=== PATIENT | female | born 1970 | race Caucasian/White ===

== ENCOUNTER 2022-06-10 12:43 | Outpatient (REF) | payer OTHER, SELFPAY ==
--- NOTE | 2022-06-10 12:50 | EEG_ITS ---
PROCEDURE: 24 hour ambulatory EEG. Waking background activity consists of a moderate voltage 9 hertz posterior alpha frequency, intermixed anteriorly with low-voltage fast frequencies. Drowsiness is characterized by diffuse theta slowing. During sleep, symmetrical frontocentral sleep spindles and vertex sharp transients developed over both hemispheres. Arousals are frequent and unremarkable. The patient remains asymptomatic. No focal, lateralizing, or paroxysmal discharges are seen. IMPRESSION: This 24-hour ambulatory EEG is within normal limits. MD BRITANY Baron/GABINO / [id number]
== END 2022-06-10 12:44 | disposition home or self-care (01) ==
LOC: HO.NEURO 12:43
PROVIDERS: PCP Internal Medicine Medical Oncology; Visit Provider Psychiatry & Neurology Neurology
DX: G40.909 Epilepsy, unspecified, not intractable, without status epilepticus (principal)
CPT/HCPCS: 95708

== ENCOUNTER 2023-01-04 10:13 | Outpatient (REF) | payer OTHER, SELFPAY ==
--- NOTE | ~2023-01-04 | MM_ITS ---
EXAMINATION: MM SCREENING DIGITAL BREAST TOMOSYNTHESIS, BILATERAL CLINICAL INFORMATION: Screening. Asymptomatic. Prior dcw-vn-ebwzu mammography unavailable at this time. No known family history breast cancer. The lifetime risk of breast cancer based on the Tyrer-Cuzick Model is 8%. COMPARISON: None. TECHNIQUE: Digital breast tomosynthesis is performed in both the craniocaudal and mediolateral oblique views along with computer-aided detection (CAD). Synthesized 2D images are generated from the tomosynthesis. Additional bilateral exaggerated CC views are provided. FINDINGS: The breasts are heterogeneously dense, which may obscure small masses (ACR BI-RADS breast composition Category c). Breast tissue composition borders on extremely dense. There are no significant masses, abnormal calcifications, or other abnormalities. No architectural abnormality. The axilla are unremarkable. Skin contours are smooth. If prior outside mammography is able to be located, comparison will be made in an addendum report. MM/MM tomosynthesis screening BI IMPRESSION: No mammographic evidence of malignancy. ASSESSMENT: BI-RADS 1: Negative RECOMMENDATION: Routine annual mammography screening. This patient's information was entered into a reminder system with a target due date for their next mammogram.
== END 2023-01-04 10:14 | disposition home or self-care (01) ==
LOC: HO.MAMMO 10:13
PROVIDERS: PCP Internal Medicine Medical Oncology; Visit Provider Internal Medicine Medical Oncology
DX: Z12.31 Encounter for screening mammogram for malignant neoplasm of breast (principal)
CPT/HCPCS: 77063; 77067

== ENCOUNTER 2023-07-16 09:14 | Outpatient (REF) | payer OTHER, SELFPAY ==
[2023-07-16 09:39] LABS: MANUAL DIFF FLAG NO
[2023-07-16 10:20] LABS: Basophils Percent Auto 0.4 % (0-2); Eosinophils Absolute Auto 0.1 X10*3/uL (0.0-0.4); Eosinophils Percent Auto 0.6 % (0-4); Hematocrit 41.1 % (37.0-47.0); Hemoglobin 14.1 g/dl (12.0-16.0); Imm Gran Abs Auto 0.09 X10*3/uL (0.00-0.03); Imm Gran Pct Auto 1.1 % (0.0-0.4); Lymphocytes Percent Auto 12.5 % (20-40); Mean Corpuscular HGB Conc 34.3 g/dl (31.0-35.0); Mean Corpuscular Hemoglobin 31.2 pg (27.0-33.0); Mean Corpuscular Volume 90.9 fL (80.0-98.0); Mean Platelet Volume 10.2 fL (9.4-12.3); Monocytes Absolute Auto 0.4 X10*3/uL (0.1-1.2); Monocytes Percent Auto 5.5 % (2-11); Neutrophils Absolute Auto 6.4 x10*3/uL (2.0-8.3); Neutrophils Percent Auto 79.9 % (45-73); Platelet Count 274 X10*3/uL (160-400); Red Blood Count 4.52 X10*6/uL (4.20-5.50); Red Cell Distribution Width 12.5 % (11.0-16.0); White Blood Count 8.1 X10*3/uL (4.8-10.8)
[2023-07-16 11:05] LABS: Alanine Aminotransferase 13 U/L (0-31); Albumin Level 4.6 g/dL (3.5-5.0); Alkaline Phosphatase 64 U/L (39-117); Anion Gap 17 (12-20); Aspartate Amino Transferase 17 U/L (5-31); Bilirubin Total 1.1 mg/dL (0.0-1.0); Blood Urea Nitrogen 16 mg/dL (9-16); Calcium 9.6 mg/dL (8.4-10.2); Carbon Dioxide 24 mmol/L (22-29); Chloride 104 mmol/L (96-108); Cholesterol 258 mg/dL (<200); Estimated Glomerular Filt Rate > 60; Glucose Random 90 mg/dL (60-115); HDL Cholesterol 86 mg/dL (>40); LDL Cholesterol Calculated 160 mg/dL (<100); Potassium 4.2 mmol/L (3.3-5.1); Sodium 141 mmol/L (135-145); Total Protein 7.2 g/dL (6.5-8.0); Triglycerides 63 mg/dL (<150)
== END 2023-07-16 09:15 | disposition home or self-care (01) ==
LOC: HO.LAB 09:14
PROVIDERS: PCP Internal Medicine Medical Oncology; Visit Provider Internal Medicine Medical Oncology
DX: Z00.00 Encounter for general adult medical examination without abnormal findings (principal); R56.9 Unspecified convulsions
CPT/HCPCS: 36415; 80053; 80061; 85025

== ENCOUNTER 2023-11-14 11:21 | Outpatient (REF) | payer OTHER, SELFPAY ==
[2023-11-14 11:48] LABS: MANUAL DIFF FLAG NO
[2023-11-14 12:43] LABS: Basophils Percent Auto 0.5 % (0-2); Eosinophils Absolute Auto 0.1 X10*3/uL (0.0-0.4); Eosinophils Percent Auto 0.8 % (0-4); Hematocrit 41.6 % (37.0-47.0); Hemoglobin 14.4 g/dl (12.0-16.0); Imm Gran Abs Auto 0.03 X10*3/uL (0.00-0.03); Imm Gran Pct Auto 0.4 % (0.0-0.4); Lymphocytes Absolute Auto 1.4 X10*3/uL (1.2-4.9); Mean Corpuscular HGB Conc 34.6 g/dl (31.0-35.0); Mean Corpuscular Hemoglobin 31.9 pg (27.0-33.0); Mean Platelet Volume 10.4 fL (9.4-12.3); Monocytes Absolute Auto 0.5 X10*3/uL (0.1-1.2); Monocytes Percent Auto 6.2 % (2-11); Neutrophils Absolute Auto 5.4 x10*3/uL (2.0-8.3); Neutrophils Percent Auto 73.1 % (45-73); Platelet Count 282 X10*3/uL (160-400); Red Blood Count 4.52 X10*6/uL (4.20-5.50); Red Cell Distribution Width 12.7 % (11.0-16.0); White Blood Count 7.4 X10*3/uL (4.8-10.8)
[2023-11-14 13:21] LABS: Alanine Aminotransferase 14 U/L (0-31); Albumin Level 4.5 g/dL (3.5-5.0); Alkaline Phosphatase 54 U/L (39-117); Anion Gap 14 (12-20); Aspartate Amino Transferase 17 U/L (5-31); Bilirubin Total 0.7 mg/dL (0.0-1.0); Blood Urea Nitrogen 15 mg/dL (9-16); Calcium 10.2 mg/dL (8.4-10.2); Carbon Dioxide 29 mmol/L (22-29); Chloride 102 mmol/L (96-108); Cholesterol 226 mg/dL (<200); Estimated Glomerular Filt Rate > 60; Glucose Fasting 100 mg/dL (60-99); HDL Cholesterol 78 mg/dL (>40); LDL Cholesterol Calculated 132 mg/dL (<100); Sodium 141 mmol/L (135-145); Total Protein 7.1 g/dL (6.5-8.0); Triglycerides 82 mg/dL (<150)
== END 2023-11-14 11:22 | disposition home or self-care (01) ==
LOC: HO.LAB 11:21
PROVIDERS: PCP Internal Medicine Medical Oncology; Visit Provider Internal Medicine Medical Oncology
DX: G43.909 Migraine, unspecified, not intractable, without status migrainosus (principal); N30.10 Interstitial cystitis (chronic) without hematuria; M19.90 Unspecified osteoarthritis, unspecified site
CPT/HCPCS: 36415; 80053; 80061; 85025

== ENCOUNTER 2024-01-11 09:49 | Outpatient (REF) | payer OTHER, SELFPAY ==
--- NOTE | ~2024-01-11 | MM_ITS ---
EXAMINATION: MM SCREENING DIGITAL BREAST TOMOSYNTHESIS, BILATERAL CLINICAL INFORMATION: Screening. Asymptomatic. COMPARISON: Mammography: This study is compared with prior exams dating back to 2022. TECHNIQUE: Digital breast tomosynthesis is performed in both the craniocaudal and mediolateral oblique views along with computer-aided detection (CAD). Synthesized 2D images are generated from the tomosynthesis. FINDINGS: The breasts are extremely dense, which lowers the sensitivity of mammography (ACR BI-RADS breast composition Category d). There are no significant masses, abnormal calcifications, or other abnormalities. MM/MM tomosynthesis screening BI IMPRESSION: No mammographic evidence of malignancy. ASSESSMENT: BI-RADS BI-RADS 1 - Negative RECOMMENDATION: Routine annual mammography screening. 1 year F/U This examination should not preclude the clinical evaluation of a suspicious palpable abnormality. This patient's information was entered into a reminder system with a target due date for their next mammogram.
== END 2024-01-11 09:50 | disposition home or self-care (01) ==
LOC: HO.MAMMO 09:49
PROVIDERS: PCP Internal Medicine Medical Oncology; Visit Provider Internal Medicine Medical Oncology
DX: Z12.31 Encounter for screening mammogram for malignant neoplasm of breast (principal)
CPT/HCPCS: 77063; 77067

== ENCOUNTER → 2024-01-11 10:00 | Outpatient (BNV) | payer OTHER, SELFPAY | PROVIDERS: PCP Internal Medicine Medical Oncology; Visit Provider Radiology Diagnostic Radiology | DX: Z12.31 Encounter for screening mammogram for malignant neoplasm of breast (principal) | CPT/HCPCS: 77063; 77067 ==

== ENCOUNTER 2024-07-17 08:36 | Outpatient (REF) | payer OTHER, SELFPAY ==
[2024-07-17 08:46] LABS: MANUAL DIFF FLAG NO
[2024-07-17 09:10] LABS: Basophils Percent Auto 0.5 % (0-2); Eosinophils Absolute Auto 0.1 X10*3/uL (0.0-0.4); Eosinophils Percent Auto 1.7 % (0-4); Hematocrit 42.2 % (37.0-47.0); Hemoglobin 14.2 g/dl (12.0-16.0); Imm Gran Abs Auto 0.02 X10*3/uL (0.00-0.03); Imm Gran Pct Auto 0.3 % (0.0-0.4); Lymphocytes Absolute Auto 1.6 X10*3/uL (1.2-4.9); Mean Corpuscular HGB Conc 33.6 g/dl (31.0-35.0); Mean Corpuscular Volume 92.1 fL (80.0-98.0); Mean Platelet Volume 9.5 fL (9.4-12.3); Monocytes Absolute Auto 0.5 X10*3/uL (0.1-1.2); Monocytes Percent Auto 7.5 % (2-11); Neutrophils Absolute Auto 4.3 x10*3/uL (2.0-8.3); Platelet Count 273 X10*3/uL (160-400); Red Blood Count 4.58 X10*6/uL (4.20-5.50); Red Cell Distribution Width 12.9 % (11.0-16.0); White Blood Count 6.6 X10*3/uL (4.8-10.8)
[2024-07-17 09:35] LABS: Alanine Aminotransferase 21 U/L (0-31); Albumin Level 4.2 g/dL (3.5-5.0); Alkaline Phosphatase 57 U/L (39-117); Anion Gap 11 (12-20); Aspartate Amino Transferase 19 U/L (5-31); Bilirubin Total 0.6 mg/dL (0.0-1.0); Blood Urea Nitrogen 11 mg/dL (9-16); Calcium 9.3 mg/dL (8.4-10.2); Carbon Dioxide 28 mmol/L (22-29); Chloride 108 mmol/L (96-108); Cholesterol 233 mg/dL (<200); Estimated Glomerular Filt Rate > 60; Glucose Fasting 109 mg/dL (60-99); HDL Cholesterol 85 mg/dL (>40); LDL Cholesterol Calculated 137 mg/dL (<100); Potassium 4.1 mmol/L (3.3-5.1); Sodium 143 mmol/L (135-145); Total Protein 6.5 g/dL (6.5-8.0); Triglycerides 59 mg/dL (<150)
== END 2024-07-17 08:37 | disposition home or self-care (01) ==
LOC: HO.LAB 08:36
PROVIDERS: PCP Internal Medicine Medical Oncology; Visit Provider Internal Medicine Medical Oncology
DX: G43.909 Migraine, unspecified, not intractable, without status migrainosus (principal)
CPT/HCPCS: 36415; 80053; 80061; 85025

== ENCOUNTER 2025-01-23 09:56 | Outpatient (REF) | payer OTHER, SELFPAY ==
--- OUTSIDE RECORDS SUMMARY | 2025-01-23 11:23 | XMS_ITS ---
Author Organization Adarsh Palacio III, MD Address [address] [place] [address] Care Team Providers Care Hand Winder Name Role Phone Adarsh Palacio Primary Care Provider REASON FOR VISIT Follow up Social History Sex Assigned At : Social History Observation Description Sex Assigned At Female Encounters Encounter Location Date Provider Diagnosis Adarsh Palacio III, MD [address] [place] [address] [place] [address] 01/04/2025 Adarsh Palacio Plan Of Treatment Next Appt Details Provider Name:Adarsh Palacio, 07/22/2025 03:30:00 PM, [address] [place] [address] [address], [place], [address], Progress Notes * Corina GARCIA MDOB:[birth year] (54 yo F)Acc No.[id number]:01/04/2025 Progress Notes Patient:?Corina GARCIA Provider:?Adarsh Palacio MD :1970???Age:54 Y???Sex:Female D ate:01/04/2025 Address:[address] [id number] Subjective: * Chief Complaints: * ???1. Follow up. * Medical History:? Objective: * Vitals:? Assessment: Plan: * Treatment: * Images: * The named appointment provid er may or may not be the originator of this progress note, and it is not deemed complete until electronically signed by the appointment provider. Sign off status: Pending * Provider:?Adarsh Palacio MD Date:?01/2025 Generated for Alma escobedo/Tray/Loulou on:?01/23/2025 11:23 AM EDT
--- OUTSIDE RECORDS SUMMARY | 2025-01-23 11:23 | XMS_ITS ---
Author Organization Adarsh Palacio III, MD Address [address] [place] [address] Care Team Providers Care Blaster Helper Name Role Phone Adarsh Palacio Primary Care Provider [phone] Allergies Allergen (clinical drug ingredient) Drug/Non Drug [...] SAXENA Referred Provider Specialty Dermatology General Notes 07/24/2024 09:45:13 AM > Faxed referral with progress note, 07/30/2024 01:28:41 PM > Office received referral has not been scheduled. patient will need an out of network referral, Andreia 07/30/2024 01:50:42 PM > Insurance referral completed [...] SEE D FOR DETAILED DIRECTIONS Oral Active FLUoxetine [...] Problem Status W/U Status Risk Notes Problem [id number] Underweight (R63.6) Active confirmed Her body mass [...] Date Provider Diagnosis Adarsh Palacio III, MD [address] [place] [address] DR [place], [place] [id number] 07/20/2024 Adarsh Palacio Migraine G43.909 ; Depression [...] - G56.03) When she was living in [place], [place]. She had bilateral carpal tunnel surgery [...] 11/14/2023 hydrOXYzine HCl 10 MG PLEASE SEE ETL ANALYST D FOR DETAILED DIRECTIONS Oral FLUoxetine HCl 20 MG 1 capsule Orally Once a day Trospium Chloride 20 MG 1 tablet at bedt helen on an empty stomach Orally Once a day Referrals Referral Date Details 07/20/2024 07/20/2024, Consult and Treat Routine Skin Check Acne, PATRIA SAXENA Next Appt Details Follow Up: 4 Months, To be s cheduled, Reason: OV, Colonoscopy Provider Name:Adarsh Hakeem, 07/22/2025 03:30:00 PM, [address] [place] [address] AYAH KWON, [place], [id number], Progress Notes * Corina GARCIA MDOB:[birth year] (54 yo F)Acc No.[id number]:07/20/2024 Progress Notes Patient:?Corina GARCIA M Provider:?Adarsh Palacio MD :1970???Age:53 Y???Sex:Female D ate:07/20/2024 Address:[address] [place], [place] [address]J[place] [id number] Subjective: * Chief Complaints: * ???Annual Exam * HPI: ???Depression Screening:?PHQ-9?Little interest or pleasure in doing things?Several days ?Feeling down, depressed, or hopeless?Several days ?Trouble falling or staying asleep, or sleeping too much?More than half the days ?Feeling tired or having little energy?More than half the days ?Poor appetite or overeating?Several days ?Feeling bad about yourself or that you are a failure, or have let yourself or your family down?Several days ?Trouble concentrating on things, such as reading the newspaper or watching television?Several days ?Moving or speaking so slowly that other people could have noticed; or the opposite, being so fidgety or restless that you have been moving around a lot more than usual?Not at all ?Thoughts that you would be better off or of hurting yourself in some way?Not at all ?Total Score?9 ?Interpretation?Mild Depression ???COVID-19 Screening:?Questions?Have you experienced fever, chills, cough, sore throat, shortness of breath, difficulty breathing, muscle aches, loss of taste or smell??No ?Have you been exposed to the virus within the last 10 days??No ?Have you travelled internationally in the last 10 days??No ?Have you been exposed to COVID-19 in the past??No ???SDOH Questions:?SDOH Questions?In the past year have you been worried about losing your housing??No ?In the past year have you or any family members you live with been unable to get any of the following when it was really needed? Check all that apply:?None ???:? The patient, a 53-year-old female, presented with [...] lbs. Blood Sugar Level is 109. * ROS:?General/Constitutional:?pain?only normal aches and pains.?Chills?denies.?Fatigue?admits.?Fever?denies.?Admits?Weight gain.?ENT:?Decreased hearing?denies.?Respiratory:?Cough?denies.?Cardiovascular:?Chest pain with exertion?denies.?Dyspnea on exertion?denies.?Shortness of breath?denies.?Gastrointestinal:?Constipation?occasional.?Decreased appetite?denies.?Diarrhea?denies.?Heartburn?denies.?Nausea?denies.?Rectal bleeding?denies.?Vomiting?denies.?Hematology:?bruising?denies.?petechiae?denies.?Swollen glands?none have been noted.?Genitourinary:?Frequent urination?at night.?Musculoskeletal:?Muscle aches?denies.?Painful joints?denies.?Sciatica?denies.?Weakness?denies.?Skin:?Itching?denies.?Rash?denies.?Skin lesion(s)?denies.?Neurologic:?Difficulty speaking?denies.?Dizziness?denies.?Headache?denies.?Low back pain?denies.?Psychiatric:?Depressed mood?which is mild.? * Medical History:? * Surgical History:?Bilateral carpal tunnel surgery Ulnar nerve release at elbow, [place] eye surgery First colonoscopy age 49. [facility] Fibroid surgery, [place] Dental extraction arpal tunnel surgery * Hospitalization/Major Diagno stic Procedure:?Syncope 04/2022No history * Family History:?Father: rosalia patton 71 yrs, diagnosed with HTN, CVD, DM.?Mother: 65 yrs.?Siblings: alive, diagnosed with DM, HTN.?1 sister(s) . .? Her parents are alive and well as is her sister. There is no family history of inherited cancers. * Social History:?Tobacco Use:?Tobacco Use/Smoking?Patient is a?nonsmoker ?Additional Findings: Tobacco Non-User?Aggressive non-smoker ?Tobacco Control (Standard)?Tobacco use:?Nonsmoker ?Additional Findings: Tobacco non-user?Aggressive nonsmoker ???Drugs/Alcohol:?Drugs?Have you used drugs other than those for medical reasons in the past 12 months??Yes ?Marijuana??Yes Edible Cannabis for sleep and migraines. ???Drug/Alcohol:?AUDIT-C (Standard)?Did you have a drink containing alcohol in the past year??No ?Points?0 ?Interpretation?Negative ???She was born in [place], [place]. She is but currently engaged, Leon Alvarez who is a police specialist. She has no children. She has recently started a [employer] business involving [employer] Prior to that she worked at [employer]. he canceled. She has no toxic exposures. She has no hinduism objections to blood transfusion. She lives in [place], [place]. At one point in her life. She lived in [place], [place]. Her mammograms have been done at [facility]. Her colonoscopy was at [facility]. She is under the care of a brass molder and a psychiatrist. She has never smoked cigarettes. * Medications:?TakingRizatript an Benzoate 10 MG Tablet take one tablet [...] reviewed and reconciled with the patient * Allergies:?No Known Drug All ergyno[Allergies Verified] Objective: * Vitals:?Ht: 66, Wt: 119, BMI :19.21, BP: 118/75, HR: 90, Temp: 101, Wt-k.98. * ???Past Orders: Lab:[facility] * Collection Date 07/17/2024 11/14/2023 Collection [...] 29 (Ref Range: 22-29 mmol/L) Anion Gap 11?L (Ref Range: 12-20) 14 (Ref Range: 12-20) Blood Urea Nitrogen 11 (Ref Range: 9-16 mg/dL) 15 (Ref Range: 9-16 mg/dL) Creatinine 0.86 (Ref Range: 0.5-1.4 mg/dL) 0.84 (Ref Range: 0.5-1.4 mg/dL) Estimated Glomerular Filt Rate > 60 > 60 Glucose Fasting 109?H (Ref Range: 60-99 mg/dL) 100?H (Ref Range: 60-99 mg/dL) Calcium 9.3 (Ref Range: 8.4-10.2 mg/dL) 10.2 (Ref Range: 8.4-10.2 mg/dL) * Lab:Lipid Panel * Collection Date 07/17/2024 11/14/2023 07/16/2023 Collection Time 08:45 AM 11:47 AM 09:38 AM Order Date 07/17/2024 11/14/2023 07/16/2023 Triglycerides 59 (Ref Range: <150 mg/dL) 82 (Ref Range: <150 mg/dL) 63 (Ref Range: <150 mg/dL) Cholesterol 233?H (Ref Range: <200 mg/dL) 226?H (Ref Range: <200 mg/dL) 258?H (Ref Range: <200 mg/dL) LDL Cholesterol Calculated 137?H (Ref Range: <100 mg/dL) 132?H (Ref Range: <100 mg/dL) 160?H (Ref Range: <100 mg/dL) HDL Cholesterol 85 [...] Percent Auto 66.0 (Ref Range: 45-73 %) 73.1?H (Ref Range: 45-73 %) 79.9?H (Ref Range: 45-73 %) Imm Gran Pct Auto 0.3 (Ref Range: 0.0-0.4 %) 0.4 (Ref Range: 0.0-0.4 %) 1.1?H (Ref Range: 0.0-0.4 %) Lymphocytes Percent Auto 24.0 (Ref Range: 20-40 %) 19.0?L (Ref Range: 20-40 %) 12.5?L (Ref Range: 20-40 %) Monocytes Percent Auto [...] 0.00-0.03 X10*3/uL) 0.03 (Ref Range: 0.00-0.03 X10*3/uL) 0.09?H (Ref Range: 0.00-0.03 X10*3/uL) Lymphocytes Absolute Auto 1.6 (Ref Range: 1.2-4.9 X10*3/uL) 1.4 (Ref Range: 1.2-4.9 X10*3/uL) 1.0?L (Ref Range: 1.2-4.9 X10*3/uL) Monocytes Absolute Auto [...] Negative (Ref Range: Negative -) * Examination: ???General Examination: ?GENERAL APPEARANCE:?pleasant, well nourished, well developed, in no acute distress, calm and relaxed, underweight, woman.?HEAD:?atraumatic, normocephalic.?EYES:?eomi, perrla, anicteric, conjugate.?EARS:?normal.?NOSE:?septum intact.?ORAL CAVITY:?normal, unremarkable.?NECK/THYROID:?no jugular venous distention, no carotid bruit, thyroid normal.?LYMPH NODES:?no enlarged lymph nodes,spleen normal.?SKIN:?no suspicious lesions, anicteric.?HEART:?no clicks, gallops, murmurs, or rubs, regular rhythm, S1, S2 normal, no s3, or vascular bruits.?LUNGS:?clear to auscultation .?BREASTS:?Not examined.?ABDOMEN:?bowel sounds normal, no ascites, no organomegaly, no mass.?RECTAL EXAM:?not examined.?MUSCULOSKELETAL:?extremities unremarkable, no clubbing, cyanosis or edema, Normal range of motion without pain of the right elbow.?PERIPHERAL PULSES:?normal.?NEUROLOGIC:?alert and oriented, cranial nerves 2-12 grossly intact, deep tendon reflexes 2+ symmetrical, motor strength normal upper and lower extremities, sensory exam intact.?PSYCH:?alert, oriented, cooperative with exam, good eye contact, cognitive function intact, thought process logical, goal directed, mood depressed.? Assessment: * Assessment: 1.?Migraine - G43.909 (Prima ry)???Notes :She reports having ended a relationship that caused her severe stress.?She has now been having many fewer headaches.? This has reduce the stress in her life significantly.???2.?Depression - F32.9???Notes :She reports that there is increased stress in her life but that she is not more depressed. He is maintaining her weight and doing well. She is able to conduct all of the activities of daily life and to take positive steps with the stress in her life.???3.?Interstitial cystitis - N30.10???Notes :She is experienciing increasing pain and dysuria from a flareup of her symptoms. We are referring her to urology.???4.?Left medial knee pain - M25.562???Notes :She reports occasional twinges in the left knee but is ambulating without difficulty.???5.?Bilateral carpal tunnel syndrome - G56.03???Notes :When she was living in [place], [place]. She had bilateral carpal tunnel surgery and is now stable. The pain has been relieved.???6.?Environmental allergies - Z91.09???Notes :She is having no allergies at this time.???7.?Underweight - R63.6???Notes :Her body mass index is 19. ?Her depression is improving. She was given an appointment to come as he is to measure her weight.??? Plan: * Treatment: 2.?Others? Continue Trospium Chloride Tablet, 20 MG, 1 tablet at bedtime on an empty stomach, Orally, Once a day;?Continue FLUoxetine HCl Capsule, 20 MG, 1 capsule, Orally, Once a day;?Continue buPROPion HCl ER (XL) Tablet Extended Release 24 Hour, 150 MG, 1 tablet in the morning, Orally, Once a day;?Continue clonazePAM Tablet, 1 MG, TAKE 1/2 TABLET BY MOUTH TWICE A DAY NEEDED, Oral.? Referral To:PATRIA SAXENA??Dermatology ?Reason:Consult and Treat Routine Skin Check Acne * Labs:? * ?Lab: URINE DIP STICK (C ollection Date & Time - 07/20/2024) ? Value Reference Range ?SG 1.025 1.005 - 1.025 * ?pH 6.0 5.0 - 9.0 * ?DON Negative Negative - * ?NIT Negative Negative - * ?PRO 15 Negative - Trac e * ?GLU Negative Negative - * ?KET 5 Negative - * ?UBG 0.2 0.1 - 1.8 * ?MELE Negative 0.2 - 1.3 * ?BLD 50 Negative - * Procedure Codes:?95987 URINE -NO MICRO * Preventive Medicine:? ??Counseling:?Care goal follow-up plan:?Counseling for abnormal BMI given?Yes ?Below Normal BMI Follow-up?Dietary education for weight gain, Dietary management education, guidance, and counseling, Feeding regime, Lifestyle education regarding diet, Nutrition / feeding management, Prescribed diet education, Special diet education, Intervention, Order not done: Medical or Other reason not done * Follow Up:?4 Months, To be s cheduled (Reason: OV, Colonoscopy) * Images: * Sign off status: Completed true * Provider:?Adarsh Palacio MD Date:?07/03 Generated for Alma escobedo/Tray/eTlelesmольга on:?01/23/2025 11:23 AM EDT History and Physical Notes * HPI (History [...] days?: No Have you travelled internationally in [facility] last 10 days?: No Have you been [...] RECTAL EXAM: not examined PSYCH: alert, oriented, missionary coordinator perative with exam, good eye contact, cognitive function intact, thought process logical, goal directed, mood depressed ORAL CAVITY: normal, unremarkable Consultation Request Notes Referral Date Referring Provider Referred Provider Not es 07/20/2024 Adarsh Palacio PETER Consult and Tr eat Routine Skin Check Acne
--- OUTSIDE RECORDS SUMMARY | 2025-01-23 11:23 | XMS_ITS ---
Author Organization Adarsh Palacio III, MD Address [address] [place] [address] Care Team Providers Care Hr Payroll Coordinator Name Role Phone Adarsh Palacio Primary Care Provider Allergies Allergen (clinical drug [...] Provider Speciality Internal M edicine Referred Provider [place] Referred Provider Specialty Orthopedic [facility] General Notes Marga Boswell 11/26/2024 10:39:39 AM [...] Date Provider Diagnosis Adarsh Palacio III, MD [address] [place] [address] [place] [address] 11/20/2024 Adarsh Palacio Migraine G43.909 ; Depression [...] 11/20/2024, Consult and Treat, [facility] Appt Details Follow Up: 6 Weeks, Reason: OV Provider Name:Adarsh Palacio, 07/22/2025 03:30:00 PM, [address] [place] [address] [address] [place] [address], [place], [phone], Progress Notes * Corina GARCIA MDOB:[birth year] (54 yo F)Acc No.[id number]:11/20/2024 Progress Notes Patient:?Corina GARCIA M Provider:?Adarsh Palacio MD :1970???Age:54 Y???Sex:Female D ate:11/20/2024 Address: [id number] Subjective: * Chief Complaints: * ???StressFrequent headachesP rozac reduction * HPI: ???COVID-19 Screening:?She returns for ongoing follow-up of several problems.? She has stopped her Wellbutrin and reduce her fluoxetine to 10 mg daily.? She did this on her own without a recommendation from me. She says she feels better for it.? She is under significant stress at home and at work which makes it hard to sleep.? She denies any chest pain or shortness of breath.Her depression is stable.? She has very few complaints about cystitis.? Her knee pain is unchanged.? She has had no allergy symptoms.She has gained 5 more pounds and her body mass index is now 20.? She says she is feeling better. ?Questions?Have you had any new onset fever, chills, cough, congestion, sore throat, shortness of breath, muscle aches??No * ROS:?General/Constitutional:?pain?only normal aches and pains.?Chills?denies.?Fatigue?admits.?Fever?denies.?ENT:?Decreased hearing?denies.?Respiratory:?Cough?denies.?Cardiovascular:?Chest pain with exertion?denies.?Dyspnea on exertion?denies.?Shortness of breath?denies.?Gastrointestinal:?Constipation?occasional.?Decreased appetite?denies.?Diarrhea?denies.?Heartburn?denies.?Nausea?denies.?Rectal bleeding?denies.?Vomiting?denies.?Hematology:?bruising?denies.?petechiae?denies.?Swollen glands?none have been noted.?Genitourinary:?Frequent urination?denies.?Musculoskeletal:?Muscle aches?denies.?Painful joints?denies.?Sciatica?denies.?Weakness?denies.?Skin:?Itching?denies.?Rash?denies.?Skin lesion(s)?denies.?Neurologic:?Difficulty speaking?denies.?Dizziness?denies.?Headache?denies.?Low back pain?denies.?Psychiatric:?Depressed mood?which is moderate.? * Medical History:? * Surgical History:?Bilateral carpal tunnel surgery Ulnar nerve release at [facility], [place] eye surgery First colonoscopy age 49. [facility] Fibroid surgery, [place] Dental extraction arpal tunnel surgery * Hospitalization/Major Diagno stic Procedure:?Syncope 04/2022No history * Family History:?Father: rosalia patton 71 yrs, diagnosed with DM, HTN, CVD.?Mother: 65 yrs.?Siblings: alive, diagnosed with DM, HTN.?1 sister(s) . .? Her parents are alive and well as is her sister. There is no family history of inherited cancers. * Social History:?Tobacco Use:?Tobacco Use/Smoking?Patient is a?nonsmoker ?Additional Findings: Tobacco Non-User?Aggressive non-smoker ?Tobacco Control (Standard)?Tobacco use:?Nonsmoker ?Additional Findings: Tobacco non-user?Aggressive nonsmoker ???She was born in [place], [place]. She is but currently engaged, Leon Alvarez who is a police aide. She has no children. 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 Prior to that she worked at [employer]. he canceled. She has no toxic exposures. She has no anglican objections to blood transfusion. She lives in [place], [place]. At one point in her life. She lived in [place], [place]. Her mammograms have been done at [facility]. Her colonoscopy was at [facility] [place]. She is under the care of a rubber printing machine operator and a psychiatrist. She has never smoked [...] ergyno[Allergies Verified] Objective: * Vitals:?Ht: 66, Wt: 124, BMI :20.01, BP: 139/88, HR: 78, Temp: 97.3, Wt-k.25. * Examination: ???General Examination: ?GENERAL APPEARANCE:?pleasant, well nourished, well developed, in no acute distress, calm and relaxed, woman.?HEAD:?atraumatic, normocephalic.?EYES:?eomi, perrla, anicteric, conjugate.?EARS:?normal.?NOSE:?septum intact.?ORAL CAVITY:?normal, unremarkable.?NECK/THYROID:?no jugular venous distention, no carotid bruit, thyroid normal.?LYMPH NODES:?no enlarged lymph nodes,spleen normal.?SKIN:?no suspicious lesions, anicteric.?HEART:?no clicks, gallops, murmurs, or rubs, regular rhythm, S1, S2 normal, no s3, or vascular bruits.?LUNGS:?clear to auscultation .?BREASTS:?Not examined.?ABDOMEN:?bowel sounds normal, no ascites, no organomegaly, no mass.?RECTAL EXAM:?not examined.?MUSCULOSKELETAL:?extremities unremarkable, no clubbing, cyanosis or edema.?PERIPHERAL PULSES:?normal.?NEUROLOGIC:?alert and oriented, cranial nerves 2-12 grossly intact, deep tendon reflexes 2+ symmetrical, motor strength normal upper and lower extremities, sensory exam intact.?PSYCH:?alert, oriented, mood depressed.? Assessment: * Assessment: 1.?Depression - F32.9 (Prima ry)???Notes :She has stopped the Wellbutrin and reduce the Prozac.? I think this is acceptable.? Her depression is clearly improved and the stress level is decreased.???2.?Migraine - G43.909???Notes :She says she is having fewer headaches now. She has ended a stressful relationship.? Her depression is better.???3.?Interstitial cystitis - N30.10???Notes :She is experienciing increasing pain and dysuria from a flareup of her symptoms. We are referring her to urology.???4.?Seizure - R56.9???Notes :No seizures have occurred. No change in her medications was necessary. Observation for this complaint will continue.???5.?Left medial knee pain - M25.562???Notes :She reports occasional twinges in the left knee but is ambulating without difficulty.??? Plan: * Treatment: 2.?Others? Continue Trospium Chloride [...] MOUTH TWICE A DAY NEEDED, Oral.? Referral To:[facility]??Orthopedic Surgery ?Reason:Consult and Treat * Procedure Codes:? * Follow Up:?6 Weeks (Reason: OV) * Images: * Sign off status: Completed true * Provider:?Adarsh Palacio MD Date:?11/03 Generated for Jayi gregg/Tray/eTlelesmitting on:?01/23/2025 11:23 AM EDT History and Physical [...] Provider Referred Provider Not es 11/20/2024 Adarsh Palacio, [facility] Consult and Treat
--- OUTSIDE RECORDS SUMMARY | 2025-01-23 11:23 | XMS_ITS | Patient Health Record ---
Author Organization Adarsh Palacio III, MD Address [address] [place] [address] Care Team Providers Care Telephone Maintenance Mechanic Name Role Phone Adarsh Palacio Primary Care Provider Allergies Allergen (clinical drug ingredient) Drug/Non Drug Allergy documented on EMR Reaction Allergy Type Onset Date Status No Known Drug Allergy Unknown Drug Allergy Active Results Component Value Reference Range Notes Complete Blood Count Auto Di ff Reviewed date:07/17/2024 11:46:48 AM Interpretation: Performing Lab:[facility], [address] [place] [phone] Notes/Report: White Blood Count 6.6 4.8-10.8 X10*3/uL Red Blood Count 4.58 4.20-5.50 X10*6/uL Hemoglobin 14.2 12.0-16.0 g/dl Hematocrit 42.2 37.0-47.0 % Mean Corpuscular Volume 92.1 80.0-98.0 fL Mean Corpuscular Hemoglobin 31.0 27.0-33.0 pg Mean Corpuscular HGB Conc 33.6 31.0-35.0 g/dl Red Cell Distribution Width 12.9 11.0-16.0 % Platelet Count 273 160-400 X10*3/uL Mean Platelet Volume 9.5 9.4-12.3 fL Neutrophils Percent Auto 66.0 45-73 % Imm Gran Pct Auto 0.3 0.0-0.4 % Lymphocytes Percent Auto 24.0 20-40 % Monocytes Percent Auto 7.5 2-11 % Eosinophils Percent Auto 1.7 0-4 % Basophils Percent Auto 0.5 0-2 % NRBC Pct Auto 0.0 0.0-0.2 /100WBC Neutrophils Absolute Auto 4.3 2.0-8.3 x10*3/u L Imm Gran Abs Auto 0.02 0.00-0.03 X10*3/uL Lymphocytes Absolute Auto 1.6 1.2-4.9 X10*3/u L Monocytes Absolute Auto 0.5 0.1-1.2 X10*3/uL Eosinophils Absolute Auto 0.1 0.0-0.4 X10*3/u L Basophils Absolute Auto 0.0 0.0-0.2 X10*3/uL NRBC Abs Auto 0.000 0.0-0.012 X10*3/uL Comprehensive [place]. Panel Fa st Reviewed date:07/17/2024 11:46:48 AM Interpretation: Performing Lab:[facility], [address] [place] [phone] Notes/Report: Sodium 143 135-145 mmol/L Potassium 4.1 3.3-5.1 mmol/L Chloride 108 96-108 mmol/L Carbon Dioxide 28 22-29 mmol/L Anion Gap 11 12-20 Blood Urea Nitrogen 11 9-16 mg/dL Creatinine 0.86 0.5-1.4 mg/dL Estimated Glomerular Filt Rate > 60 NOTE: For -Citizen Of [place] individuals, multiply the result by 1.210. Chronic Kidney Disease: Estimated GFR < 60 mL/min/1.73m2 Severe Kidney Disease: Estimated GFR < 15 mL/min/1.73m2 Glucose Fasting 109 60-99 mg/dL A fasting glucose from 100-125 mg/dl is considered impaired (pre-diabetes). Calcium 9.3 8.4-10.2 mg/dL Bilirubin Total 0.6 0.0-1.0 mg/dL Aspartate Amino Transferase 19 5-31 U/L Alanine Aminotransferase 21 0-31 U/L Total Protein 6.5 6.5-8.0 g/dL Albumin Level 4.2 3.5-5.0 g/dL Alkaline Phosphatase 57 39-117 U/L Lipid Panel Reviewed date:07/17/2024 11:46:48 AM Interpretation: Performing Lab:[facility], [address] [place] [phone] Notes/Report: Triglycerides 59 <150 mg/dL Desirable Triglyceride: less than 150 mg/dL Borderline High Triglyceride 150-199 mg/dL High Triglyceride: 200-499 mg/dL Very High Triglyceride: greater than or equal to 5OO mg/dL Cholesterol 233 <200 mg/dL Desirable Cholesterol: less than 200 mg/dL Borderline High Cholesterol: 200-239 mg/dL High Cholesterol: greater than 239 mg/dL LDL Cholesterol Calculated 137 <100 mg/dL Desirable LDL: less than 100 mg/dL Near Optimal/Above Optimal LDL: 110-129 mg/dL Borderline High LDL: 130-159 mg/dL High LDL: 160-189 mg/dL Very High LDL: greater than or equal to 190 mg/dL HDL Cholesterol 85 >40 mg/dL Desirable HDL: greater than 40 mg/dL Note: This HDL assay may give artificially low results in patients with liver disease. URINE DIP STICK Reviewed date:07/20/2024 03:24:42 PM [...] Last Name Hakeem Referring Provider Speciality Internal [facility] Referred Provider PATRIA SAXENA Referred Provider Specialty Dermatology General Notes 07/24/2024 09:45:13 AM > Faxed referral with progress note, Andreia 07/30/2024 01:28:41 PM > Office received referral has not been scheduled. patient will need an out of network referral, D 07/30/2024 01:50:42 PM > Insurance referral completed and faxed, Andreia 08/23/2024 10:59:11 AM > patient is scheduled for 12/13/2023 @ 8am Referral Priority Routine Referral Appointment Date 12/12/2024 Reason Consult and Treat Diagnosis 1 Right elbow pain (M2 5.521) Diagnosis 2 Right wrist pain (M2 5.531) Referral Organization Adarsh Palacio III, MD Referring Provider First Name Adarsh Referring Provider Last Name Hakeem Referring Provider Speciality Internal M edicine Referred Provider [facility] Referred Provider Specialty Orthopedic S david General Notes Marga Boswell 11/26/2024 10:39:39 AM [...] Referral Priority Routine Referral Appointment Date 12/07/2024 Medications Medication SIG (Take, Route, Frequency, Duration) Notes Start Date End Date Status Rizatriptan Benzoate 10 MG take one tabl et daily as needed. may repeat in 2 hours if needed Oral Once a day as needed may repeat in 2 hours if needed Active FLUoxetine HCl 20 MG 1 capsule Orally On ce a day Active Trospium Chloride 20 MG 1 tablet at bedt helen on an empty stomach Orally Once a day Active clonazePAM 1 MG TAKE 1/2 TABLET BY MOUTH TWICE A DAY NEEDED Oral Active buPROPion HCl ER (XL) 150 MG 1 tablet in the morning Orally Once a day Active Pyridium 200 MG 1 tablet after meals Orally Three times a day 11/14/2023 Active hydrOXYzine HCl 10 MG PLEASE SEE ATTACHE Boswell FOR DETAILED DIRECTIONS Oral Active Phenazopyridine HCl 200 MG TAKE 1 TABLET BY MOUTH THREE TIMES A DAY AFTER MEALS FOR 10 DAYS for 10 Active Immunizations Vaccine Route Administration Date Status Comme nts COVID PFIZER Unknown 12/29/2020 Administered COVID PFIZER Unknown 01/19/2021 Administered COVID 19 Moderna Unknown 09/12/2021 Administered COVID-19 Moderna SPIKEVAX Unknown 08/06/2023 Administer ed Social History Tobacco Use: Social History Observation [...] Problem Status W/U Status Risk Notes Problem Depression (916029634) Depression (F32.9) Active confirmed She has stopped the Wellbutrin and reduce the Prozac. I think this is acceptable. Her depression is clearly improved and the stress level is decreased. Problem 173412773 Underweight (R63.6) Active confirmed Her body mass index is 19. Her depression is improving. She was given an appointment to come as he is to measure her weight. Problem 8671794 Arthritis (M19.90) Active confirmed There has been no change in her arthritic symptoms which are mild. Problem Pain in wrist (95962774) Pain in left wrist (M25.532) Active confirmed The pain is localized over the end of the radius. The orthopedist will see her. Problem 582509184 Environmental allergies (Z91.09) Active confirmed She is having no allergies at this time. Problem Migraine (48662697) Migraine (G43.909) Active confirmed She says she is having fewer headaches now. She has ended a stressful relationship. Her depression is better. Problem Chronic interstitial cystitis (744049137) Interstitial cystitis (N30.10) Active confirmed She is experienciing increasing pain and dysuria from a flareup of her symptoms. We are referring her to urology. Problem 82112670 Seizure (R56.9) Active confirmed No seizures have occurred. No change in her medications was necessary. Observation for this complaint will continue. Problem 1588704417 Left medial knee pain (M25.562) Active confirmed She reports occasional twinges in the left knee but is ambulating without difficulty. Problem 05731493 Bilateral carpal tunnel syndrome (G56.03) Active confirmed When she was living in [place], [place]. She had bilateral carpal tunnel surgery and is now stable. The pain has been relieved. Problem 697380610310495 Fibroids (D21.9) Active confirmed When she was residing in [place], [place]. She had surgery for fibroids. The details are unavailable. 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 She is asymptomatic now. Vital Signs Heart Rate 78 /min 11/20/2024 Temperature 97.3 degrees Fahrenheit 11/20/2024 Blood pressure diastolic 88 mm Hg 11/20/2024 Height 66 in 11/20/2024 Blood pressure systolic 139 mm Hg 11/20/2024 Weight 124 lbs 11/20/2024 BMI 20.01 kg/m2 11/20/2024 Encounters Encounter Location Date Provider Diagnosis Adarsh Palacio III, MD [address] [place] [address] [place] [address] 03/23/2024 Adarsh Palacio Migraine G43.909 ; Depression F32.9 ; Interstitial cystitis N30.10 ; Left medial knee pain M25.562 ; Seizure R56.9 and Underweight R63.6 Adarsh aPlacio III, MD [address] [place] [address] [place] [address] 04/03/2024 Adarsh Hakeem Migraine G43.909 ; Tachycardia R00.0 ; Interstitial cystitis N30.10 ; Left medial knee pain M25.562 ; Seizure R56.9 and Depression F32.9 Adarsh Palacio III, MD [address] [place] [address] [place] [address] 07/20/2024 Adarsh Palacio Migraine G43.909 ; Depression F32.9 ; Interstitial cystitis N30.10 ; Left medial knee pain M25.562 ; Bilateral carpal tunnel syndrome G56.03 ; Environmental allergies Z91.09 and Underweight R63.6 Adarsh Palacio III, MD [address] [place] [address] [place] [address] 11/20/2024 Adarsh Granderne Migraine G43.909 ; Depression F32.9 ; Interstitial cystitis N30.10 ; Seizure R56.9 and Left medial knee pain M25.562 Adarsh Palacio III, MD [address] [place] [address] [place] [address] 07/16/2024 Adarsh Palacio Assessments Encounter Date Diagnosis (ICD Code) Assessment Notes Treat ment Notes Treatment Clinical Notes 03/23/2024 Depression (ICD-10 - F32.9) She reports that there is increased stress in her life but that she is not more depressed. He is maintaining her weight and doing well. She is able to conduct all of the activities of daily life and to take positive steps with the stress in her life. 03/23/2024 Migraine (ICD-10 - G43.909) She reports [...] room. She was given an appointment. 04/03/2024 Migraine (ICD-10 - G43.909) She reports having relationship stress in her life which is causing her to have more frequent migraines and cluster headaches. We discussed ways in which the stress could be reduced. 07/20/2024 Depression (ICD-10 - F32.9) She reports that there is increased stress in her life but that she is not more depressed. He is maintaining her weight and doing well. She is able to conduct all of the activities of daily life and to take positive steps with the stress in her life. 07/20/2024 Migraine (ICD-10 - G43.909) She reports having ended a relationship that caused her severe stress. She has now been having many fewer headaches. This has reduce the stress in her life significantly. 11/20/2024 Depression (ICD-10 - F32.9) She has stopped the Wellbutrin and reduce the Prozac. I think this is acceptable. Her depression is clearly improved and the stress level is decreased. 11/20/2024 Migraine (ICD-10 - G43.909) She says she is having fewer headaches now. She has ended a stressful relationship. Her depression is better. 03/23/2024 Interstitial cystitis (ICD-10 - N30.10) She is experienciing increasing pain and dysuria from a flareup of her symptoms. We are referring her to urology. 04/03/2024 Interstitial cystitis (ICD-10 - N30.10) She is experienciing increasing pain and dysuria from a flareup of her symptoms. We are referring her to urology. 07/20/2024 Interstitial cystitis (ICD-10 - N30.10) She is experienciing increasing pain and dysuria from a flareup of her symptoms. We are referring her to urology. 11/20/2024 Interstitial cystitis (ICD-10 - N30.10) She is experienciing increasing pain and dysuria from a flareup of her symptoms. We are referring her to urology. 03/23/2024 Left medial knee pain (ICD-10 - M25.562) She reports occasional twinges in the left knee but is ambulating without difficulty. 04/03/2024 Left medial knee pain (ICD-10 - M25.562) She reports occasional twinges in the left knee but is ambulating without difficulty. 07/20/2024 Left medial knee pain (ICD-10 - M25.562) She reports occasional twinges in the left knee but is ambulating without difficulty. 11/20/2024 Seizure (ICD-10 - R56.9) No seizures have occurred. No change in her medications was necessary. Observation for this complaint will continue. 03/23/2024 Seizure (ICD-10 - R56.9) No seizures have occurred. No change in her medications was necessary. Observation for this complaint will continue. 04/03/2024 Seizure (ICD-10 - R56.9) No seizures have occurred. No change in her medications was necessary. Observation for this complaint will continue. 07/20/2024 Bilateral carpal tunnel syndrome (ICD-10 - G56.03) When she was living in [place], [place]. She had bilateral carpal tunnel surgery and is now stable. The pain has been relieved. 11/20/2024 Left medial knee pain (ICD-10 - M25.562) She reports occasional twinges in the left knee but is ambulating without difficulty. 03/23/2024 Underweight (ICD-10 - R63.6) On her last visit she had lost 5 pounds. Her depression is improving. She was given an appointment to come as he is to measure her weight. 04/03/2024 Depression (ICD-10 - F32.9) She reports that there is increased stress in her life but that she is not more depressed. He is maintaining her weight and doing well. She is able to conduct all of the activities of daily life and to take positive steps with the stress in her life. 07/20/2024 Environmental allergies (ICD-10 - Z91.09) She is having no allergies at this time. 07/20/2024 Underweight (ICD-10 - R63.6) Her body mass index is 19. Her depression is improving. She was given an appointment to come as he is to measure her weight. Plan Of Treatment Pending Test Test Name Order Date PROFILE, FASTING (COMPREHENSIVE METABOLI C) 03/23/2024 PROFILE, FASTING (COMPREHENSIVE METABOLI C) 06/02/2022 PROFILE, FASTING (COMPREHENSIVE METABOLI C) 03/04/2023 PROFILE, FASTING (COMPREHENSIVE METABOLI C) 11/14/2023 PROFILE, FASTING (COMPREHENSIVE METABOLI C) 12/01/2022 PROFILE, FASTING (COMPREHENSIVE METABOLI C) 07/18/2023 LIPID PANEL 06/02/2022 LIPID PANEL 11/14/2023 LIPID PANEL 12/01/2022 CBC w DIFF 07/18/2023 CBC w DIFF 12/01/2022 CBC w DIFF 03/04/2023 CBC w DIFF 06/02/2022 CBC w DIFF 11/14/2023 CBC WITH AUTO DIFF 03/23/2024 Lipid Panel 07/18/2023 Lipid Panel 03/23/2024 Lipid Panel 03/04/2023 Next Appt Details Provider Name:Adarhs Palacio, 07/22/2025 03:30:00 PM, [address] [place] [address] [address], [place], [address], Insurance Providers Payer Name Payer Address Payer Phone Subscriber Number Group Number Insured Name Patient Relationship to Insured Coverage Start Date Coverage End Date [facility] [address] [place] [address] [id number] Corina Sr Self - patient is the insured [place] [address] [place], [place] [id number] [phone] [id number] Corina Sr Self - patient is the insured Medical (General) History Medical History History ICD Code Anxiety F41.9 Depression F32.9 Migraine G43.909 Interstitial cystitis N30.10 Medial left knee pain. 2020 History of interstitial cystitis Probable seizure March 2022 Bilateral carpal tunnel surgery Right elbow ulnar nerve release History of eye surgery Gluten allergy Overactive bladder Postmenopausal Migraine headaches Seasonal allergies Colonoscopy age 49. [facility] Surgical History Surgery Date(Month/Year) Carpal tunnel surgery Dental extraction 2023 Fibroid surgery, [place] First colonoscopy age 49. [facility] eye surgery Ulnar nerve release at [place], [place] Bilateral carpal tunnel surgery Hospitalization History Reason Date(Month/Year) No history Syncope 04/2022
== END 2025-01-23 09:57 | disposition home or self-care (01) ==
LOC: HO.MAMMO 09:56
PROVIDERS: PCP Internal Medicine Medical Oncology; Visit Provider Internal Medicine Medical Oncology
DX: Z12.31 Encounter for screening mammogram for malignant neoplasm of breast (principal)
CPT/HCPCS: 77063; 77067

== ENCOUNTER → 2025-01-23 10:00 | Outpatient (BNV) | payer OTHER, SELFPAY | PROVIDERS: PCP Internal Medicine Medical Oncology; Visit Provider Internal Medicine | DX: Z12.31 Encounter for screening mammogram for malignant neoplasm of breast (principal) | CPT/HCPCS: 77063; 77067 ==

== ENCOUNTER 2025-08-14 08:42 | Outpatient (REF) | payer OTHER, SELFPAY ==
--- OUTSIDE RECORDS SUMMARY | 2013-06-28 23:00 | XMS_ITS | Encounter Summary ---
Author Organization [facility] Address [address] [facility] [address] [place] [phone] Phone Care Team Providers Care Synchro Assembler Name Role Phone Unavailable Primary Care Provider Unavailabl e Encounter Details Date Type Department Care Team (Late st Contact Info) Description 06/29/2013 Hospital Encounter [facility],Outside Imaging [address] [place] [address] System, Provider Not In, PhD [address] [id number] Social History Tobacco Use Types Packs/Day Years Used Date Smoking Tobacco: Never Smokeless Tobacco: Never Alcohol Use Standard Drinks/Week Comments Not Currently 0 (1 standard drink = 0.6 oz pur e alcohol) Child or Family Care Answer Date Record ed Do you have problems with on e of the following making it difficult for you to work, study, or receive health care? No 06/04/2021 Education Answer Date Recorded Are you interested in more education? Not on sara e 06/12/2023 Are you concerned about learning? Not on file 06/12/2023 No 06/12/2023 No 06/12/2023 Food Answer Date Recorded Within the past 6 months we worried whether our food would run out before we got money to buy more. Never True 06/04/2021 Within the past 6 months the food we bought just didn't last and we didn't have enough money to get more. Never True Residential Stability Answer Date Recor ded What is your housing situation today? I have valencia sing 06/04/2021 How many times have you move d in the past 12 months? Zero (I did not move) 06/04/2021 06 Are you worried that in t he next 2 months, you may not have your own housing to live in? No 06/04/2021 Paying for Meds Answer Date Recorded Do you have trouble paying for medicines? No 06/04/2021 Paying Utility Bills Answer Date Record ed Do you have trouble paying your heating or elect ricity bill? No 06/04/2021 Transportation Answer Date Recorded Has the lack of transportati on kept you from medical appointments or from getting medications? No 06/04/2021 Unemployment Answer Date Recorded Are you currently unemployed or working on a part-time or temporary basis, and looking for work? Yes 06/04/2021 Digital Access Answer Date Recorded No 02/26/2023 No 02/26/2023 No 02/26/2023 Reliable internet access at home? Not on file 02/26/2023 Device with a working camera? Not on file Intimate Partner Violence Answer Date R ecorded Are you denied basic needs s uch as food, clothing, or medical care? No 03/25/2024 In the past 12 months have y ou been in a relationship with a person who hurts, threatens, or tries to control you? No 03/25/2024 Are you denied basic needs s uch as food, clothing, or medical care? No 03/25/2024 In the past 12 months have y ou been in a relationship with a person who hurts, threatens, or tries to control you? No 03/25/2024 Comments No Sex and Gender Information Value Date Recorded Sex Assigned at Female 02/02/2021 6:41 PM EDT Legal Sex Female 5:39 PM EST Gender Identity Female 02/02/2021 6:41 PM EDT Sexual Orientation Choose not to disclose 2023 7:33 PM EDT documented as of this encounter Functional Status * Calculated C-SSRS Risk Score (Lifetime/Recent) Answer Date of Assessment Author No Risk Indicated 03/25/2024 8:04 PM EDT Jerica Lam, ELADIO * [place] Suicide Severity Rating Scale (Screener/Recent Self-Report) Question Answer Date of Assessment Author 1. Wish to be (Past 1 Month) No 03/25/2024 8:04 PM EDT Jerica Cuellar, ELADIO 2. Non-Specific Active Suicidal Thoughts (Past 1 Month) No 03/25/2024 8:04 PM EDT Jerica Cuellar RN 6. Suicidal Behavior (Lifetime) No 03/25/2024 8:04 PM EDT Jerica Cuellar RN documented as of this encounter Plan of Treatment Not on file documented as of this encounter Procedures Procedure Name Priority Date/Time Associated Diagnosis Comments BI MAMMOGRAM OUTSIDE (NO INTERPRETATION) Routine 06/29/2013 12:00 AM EDT documented in this encounter Results * Mammogram Outside (No Interpretation) (06/29/2013 12:00 AM EDT) Narrative SYSTEMGENERATED, DOCUMENTATION - 04/29/2020 9:53 AM EDT This study is for PACS storage only and not for interpretation. us Provider Not In System PhD IMG OUTSIDE IMAGING W /OUT INTERPRETATION Final Result documented in this encounter Visit Diagnoses Not on filedocumented in this encounter Additional Source Comments The information contained in this document represents components of the legal health record. It is not the complete legal health record.[facility]
--- OUTSIDE RECORDS SUMMARY | 2024-03-23 09:45 | XMS_ITS ---
Author Organization Adarsh Palacio III, MD Address [address] [place] [address] Care Team Providers Care Faith Healer Name Role Phone Dr. Adarsh Palacio III Primary Care Provider Allergies Allergen (clinical drug ingredient) Drug/Non Drug Allergy documented on EMR Reaction Allergy Type Onset Date Status No Known Drug Allergy Unknown Drug Allergy Active REASON FOR VISIT Depression, Interstitial cystitis, Left knee pain, Environmental allergy Medications Medication SIG (Take, Route, Frequency, Duration) Notes Start Date End Date Status FLUoxetine HCl 20 MG 1 capsule Orally On ce a day Active buPROPion HCl ER (XL) 150 MG 1 tablet in the morning Orally Once a day Active clonazePAM 1 MG TAKE 1/2 TABLET BY M OUTH TWICE A DAY NEEDED Oral Active hydrOXYzine HCl 10 MG PLEASE SEE D FOR DETAILED DIRECTIONS Oral Active Pyridium 200 MG 1 tablet after meals Orally Three times a day 11/14/2023 Active Rizatriptan Benzoate 10 MG take one tabl et daily as needed. may repeat in 2 hours if needed Oral Once a day as needed may repeat in 2 hours if needed Active Trospium Chloride 20 MG 1 tablet at bedt helen on an empty stomach Orally Once a day Active Social History Tobacco Use: Social History Observation Description Date Details (start date - stop date) Never Smoker NA - NA Sex Assigned At : Social History Observation Description Sex Assigned At Female Tobacco Use/Smoking Question Answer Notes Patient is a nonsmoker Additional Findings: Tobacco Non-User Aggressive non-smoker Vital Signs Temperature 98.2 degrees Fahrenheit 03/23/20 24 Blood pressure systolic 134 mm Hg 03/23/20 24 Blood pressure diastolic 82 mm Hg 024 Heart Rate 92 /min 03/23/2024 Height 66 in 03/23/2024 Weight 114 lbs 03/23/2024 BMI 18.4 kg/m2 03/23/2024 Encounters Encounter Location Date Provider Diagnosis Adarsh Palacio III, MD [address] [place] [address] [address] [place], [place] [phone] 03/23/2024 Adarsh Palacio Migraine G43.909 ; Depression F32.9 ; Interstitial cystitis N30.10 ; Left medial knee pain M25.562 ; Seizure R56.9 and Underweight R63.6 Assessments Encounter Date Diagnosis (ICD Code) Assessment Notes Treatment Notes Treatment Clinical Notes 03/23/2024 Migraine (ICD-10 - G43.909) She reports having relationship stress in her life which is causing her to have more frequent migraines and cluster headaches. We discussed ways in which the stress could be reduced. 03/23/2024 Depression (ICD-10 - F32.9) She reports that there is increased stress in her life but that she is not more depressed. He is maintaining her weight and doing well. She is able to conduct all of the activities of daily life and to take positive steps with the stress in her life. 03/23/2024 Interstitial cystitis (ICD-10 - N30.10) She is experienciing increasing pain and dysuria from a flareup of her symptoms. We are referring her to urology. 03/23/2024 Left medial knee pain (ICD-10 - M25.562) She reports occasional twinges in the left knee but is ambulating without difficulty. 03/23/2024 Seizure (ICD-10 - R56.9) No seizures have occurred. No change in her medications was necessary. Observation for this complaint will continue. 03/23/2024 Underweight (ICD-10 - R63.6) On her last visit she had lost 5 pounds. Her depression is improving. She was given an appointment to come as he is to measure her weight. Plan Of Treatment Medication Medication Name Sig Start Date Stop Date Notes FLUoxetine HCl 20 MG 1 capsule Orally Once a day buPROPion HCl ER (XL) 150 MG 1 tablet in the morning Orally Once a day clonazePAM 1 MG TAKE 1/2 TABLET BY M OUTH TWICE A DAY NEEDED Oral hydrOXYzine HCl 10 MG PLEASE SEE ATTACHE [place] FOR DETAILED DIRECTIONS Oral Pyridium 200 MG 1 tablet after meals Orally Three times a day 11/14/2023 Rizatriptan Benzoate 10 MG take one tabl et daily as needed. may repeat in 2 hours if needed Oral Once a day as needed may repeat in 2 hours if needed Trospium Chloride 20 MG 1 tablet at bedt helen on an empty stomach Orally Once a day Pending Test Test Name Order Date PROFILE, FASTING (COMPREHENSIVE METABOLI C) 03/23/2024 CBC WITH AUTO DIFF 03/23/2024 Lipid Panel 03/23/2024 Next Appt Details Follow Up: As Scheduled, Jolene son: OV, Annual Exam Provider Name:Adarsh Palacio , 08/16/2025 09:30:00 AM, [address] [place] [address] [facility] [place], [place], [phone], Progress Notes * Corina GARCIA MDOB:[birth year] (53 yo F)Acc No.[id number]:03/23/2024 Progress Notes Patient: Dinora Corina dey Shoaib Provider: Nataliia Palacio MD :1970 A ge:53 Y S ex:Female Date:03/23/2024 Address: [address] [id number] Subjective: * Chief Complaints: * D epressionInterstitial cystitisLeft knee painEnvironmental allergy * HPI: C OVID-19 Screening: She returns for management of her medical issues. Her depression is stable but she has been having more frequent headaches which she attributes to the stress from a failing relationship. Her cystitis is a littlle better than usual now. She says she is using yoga and meditation and prayer to help with her stress. Questions H ave you experienced fever, chills, cough, sore throat, shortness of breath, difficulty breathing, muscle aches, loss of taste or smell? N o H ave you been exposed to the virus within the last 10 days? N o H ave you travelled internationally in the last 10 days? N o H ave you been exposed to COVID-19 in the past? N o * ROS: G eneral/Constitutional: pain H eadaches and cystitis, wrists and knees. C hills?denies. F atigue a dmits. F ever d enies. E NT: Decreased hearing d enies. R espiratory: Cough d enies. C ardiovascular: Chest pain with exertion d enies. D yspnea on exertion?denies. S hortness of breath d enies. G astrointestinal: Constipation o ccasional. D ecreased appetite ? that is not associated with weight loss. D iarrhea d enies. H eartburn d enies.?Nausea d enies. R ectal bleeding d enies. V omiting d enies. H ematology: bruising d enies. p etechiae d enies. S wollen glands n one have been noted. G enitourinary: Frequent urination d enies. M usculoskeletal: Muscle aches d enies. P ainful joints W rists, knees. S ciatica d enies. W eakness d enies. S kin: Itching d enies. R alexandre d enies. S kin lesion(s)?denies. N eurologic: Difficulty speaking d enies. D izziness d enies.?Headache M ore frequent due to relationship stresses. L ow back pain d enies. ? P sychiatric: Depressed mood w hich is moderate. * Medical History: * Surgical History: B ilateral carpal tunnel surgery Ulnar nerve release at [facility], [place] eye surgery First colonoscopy age 49. [facility] Fibroid surgery, [place] * Hospitalization/Major Diagno stic Procedure: S yncope 04/2022 * Family History: F ather: alive 71 yrs, diagnosed with CVD, HTN, DM. M other: 65 yrs. S iblings: alive, diagnosed with DM, HTN. 1 sister(s) . . Her parents are alive and well as is her sister. There is no family history of inherited cancers. * Social History: T obacco Use: T obacco Use/Smoking P atient is a n onsmoker A dditional Findings: Tobacco Non-User A ggressive non-smoker S he was born in [place], [place]. She is but currently engaged, Leon Alvarez who is a mounted police. She has no children. 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 Prior to that she worked at [employer]. he canceled. She has no toxic exposures. She has no yazdanism objections to blood transfusion. She lives in [place], [place]. At one point in her life. She lived in [place], [place]. Her mammograms have been done at [facility]. Her colonoscopy was at [facility]. She is under the care of a weighter and a psychiatrist. She has never smoked cigarettes. * Medications: T akingRizatriptan Benzoate 10 MG Tablet take one tablet daily as needed. may repeat in 2 hours if needed Oral Once a day as needed may repeat in 2 hours if neededTrospium Chloride 20 MG Tablet 1 tablet at bedtime on an empty stomach Orally Once a dayFLUoxetine HCl 20 MG Capsule 1 capsule Orally Once a daybuPROPion HCl ER (XL) 150 MG Tablet Extended Release 24 Hour 1 tablet in the morning Orally Once a dayclonazePAM 1 MG Tablet TAKE 1/2 TABLET BY MOUTH TWICE A DAY NEEDED Oral hydrOXYzine HCl 10 MG Tablet PLEASE SEE ATTACHED FOR DETAILED DIRECTIONS Oral Pyridium 200 MG Tablet 1 tablet after meals Orally Three times a dayMedication List reviewed and reconciled with the patientTaking Rizatriptan Benzoate 10 MG Tablet take one tablet daily as needed. may repeat in 2 hours if needed Oral Once a day as needed may repeat in 2 hours if neededTaking Trospium Chloride 20 MG Tablet 1 tablet at bedtime on an empty stomach Orally Once a dayTaking FLUoxetine HCl 20 MG Capsule 1 capsule Orally Once a dayTaking buPROPion HCl ER (XL) 150 MG Tablet Extended Release 24 Hour 1 tablet in the morning Orally Once a dayTaking clonazePAM 1 MG Tablet TAKE 1/2 TABLET BY MOUTH TWICE A DAY NEEDED Oral Taking hydrOXYzine HCl 10 MG Tablet PLEASE SEE ATTACHED FOR DETAILED DIRECTIONS Oral Taking Pyridium 200 MG Tablet 1 tablet after meals Orally Three times a dayMedication List reviewed and reconciled with the patient * Allergies: N o Known Drug Allergyno[Allergies Verified] Objective: * Vitals: H t: 66, Wt: 114, BMI:18.4, BP: 134/82, HR: 92, Temp: 98.2, Wt-k.71. * P ast Orders: Imaging:MM tomosynthesis scr eening BI * Order Date 01/11/2024 01/04/2023 * Examination: G eneral Examination: GENERAL APPEARANCE: p leasant, well nourished, well developed, in no acute distress, calm and relaxed , underweight , woman. HEAD: a traumatic, normocephalic. EYES: e judith, perrla, anicteric, conjugate. EARS: n ormal. NOSE: s eptum intact. ORAL CAVITY: n ormal, unremarkable. NECK/THYROID: n o jugular venous distention, no carotid bruit, thyroid normal. LYMPH NODES: n o enlarged lymph nodes,spleen normal. SKIN: n o suspicious lesions, anicteric. HEART: n o clicks, gallops, murmurs, or rubs, regular rhythm, S1, S2 normal, no s3, or vascular bruits. LUNGS: c lear to auscultation . BREASTS: n ot examined. ABDOMEN: b owel sounds normal, no ascites, no organomegaly, no mass. RECTAL EXAM: n ot examined. MUSCULOSKELETAL: e xtremities unremarkable, no clubbing, cyanosis or edema. PERIPHERAL PULSES: n ormal. NEUROLOGIC: a lert and oriented, cranial nerves 2-12 grossly intact, deep tendon reflexes 2+ symmetrical, motor strength normal upper and lower extremities, sensory exam intact. PSYCH: a lert, oriented , mood depressed , thought process logical, goal directed , cognitive function intact. Assessment: * Assessment: 1. M igraine - G43.909 (Primary), She reports having relationship stress in her life which is causing her to have more frequent migraines and cluster headaches. We discussed ways in which the stress could be reduced. 2 . D epression - F32.9, She reports that there is increased stress in her life but that she is not more depressed. He is maintaining her weight and doing well. She is able to conduct all of the activities of daily life and to take positive steps with the stress in her life. 3 . I nterstitial cystitis - N30.10, She is experienciing increasing pain and dysuria from a flareup of her symptoms. We are referring her to urology. 4 . L eft medial knee pain - M25.562, She reports occasional twinges in the left knee but is ambulating without difficulty. 5. S eizure - R56.9, No seizures have occurred. No change in her medications was necessary. Observation for this complaint will continue. 6 . U nderweight - R63.6, On her last visit she had lost 5 pounds. Her depression is improving. She was given an appointment to come as he is to measure her weight. Plan: * Treatment: 2. S eizure L AB: PROFILE, FASTING (COMPREHENSIVE METABOLIC) L AB: CBC WITH AUTO DIFF L AB: Lipid Panel 3. O thers Continue Trospium Chloride Tablet, 20 MG, 1 tablet at bedtime on an empty stomach, Orally, Once a day; C ontinue FLUoxetine HCl Capsule, 20 MG, 1 capsule, Orally, Once a day; C ontinue buPROPion HCl ER (XL) Tablet Extended Release 24 Hour, 150 MG, 1 tablet in the morning, Orally, Once a day; C ontinue clonazePAM Tablet, 1 MG, TAKE 1/2 TABLET BY MOUTH TWICE A DAY NEEDED, Oral. ? * Procedure Codes: * Preventive Medicine: Counseling: C are goal follow-up plan: Counseling for abnormal BMI given Y es Below Normal BMI Follow-up D ietary education for weight gain, Dietary management education, guidance, and counseling, Feeding regime, Lifestyle education regarding diet, Nutrition / feeding management, Prescribed diet education, Special diet education, Intervention, Order not done: Medical or Other reason not done * Follow Up: A s Scheduled (Reason: OV, Annual Exam) * Images: * Sign off status: Completed true * Provider: Nataliia Palacio MD Date: 0 03/23/2024 Generated for Alma escobedo/Tray/eTlelesmitting on: 10/14/2024 09:09 AM EST History and Physical Notes * HPI (History of Present Illness) Category Sub-Category Detail Notes COVID-19 Screening Questions Have you had any new onset fever, chills, cough, congestion, sore throat, shortness of breath, muscle aches?: No Have you been exposed to the virus withi n the last 10 days?: No Have you travelled internationally in [facility] last 10 days?: No Have you been exposed to COVID-19 in the past?: No Examination Category Sub-Category Detail Notes General Examination GENERAL APPEARANCE: pleasant , well nourished, well developed, in no acute distress, calm and relaxed , underweight , woman HEAD: atraumatic, normocep halic EYES: eomi, perrla, anicte cheryle, conjugate EARS: normal NOSE: septum intact NECK/THYROID: no jugular venous di stention, no carotid bruit, thyroid normal HEART: no clicks, gallops, murmurs, or rubs, regular rhythm, S1, S2 normal, no s3, or vascular bruits LUNGS: clear to auscultatio n ABDOMEN: bowel sounds normal, no ascites, no organomegaly, no mass NEUROLOGIC: alert and oriented, cranial nerves 2-12 grossly intact, deep tendon reflexes 2+ symmetrical, motor strength normal upper and lower extremities, sensory exam intact SKIN: no suspicious lesion s, anicteric PERIPHERAL PULSES: normal BREASTS: not examined MUSCULOSKELETAL: extremities unremark able, no clubbing, cyanosis or edema LYMPH NODES: no enlarged lymph no tammy,spleen normal RECTAL EXAM: not examined PSYCH: alert, oriented , mo od depressed , thought process logical, goal directed , cognitive function intact ORAL CAVITY: normal, unremarkable
--- OUTSIDE RECORDS SUMMARY | 2024-04-03 10:15 | XMS_ITS ---
Author Organization Adarsh Palacio III, MD Address [address] [place] [address] Care Team Providers Care Manager Ccu Name Role Phone Dr. Adarsh Palacio III Primary Care Provider [phone] Allergies Allergen (clinical drug ingredient) Drug/Non Drug Allergy documented on EMR Reaction Allergy Type Onset Date Status No Known Drug Allergy Unknown Drug Allergy Active REASON FOR VISIT Tachycardia, Dyspnea Medications Medication SIG (Take, Route, Frequency, Duration) Notes Start Date End Date Status FLUoxetine HCl 20 MG 1 capsule Orally On ce a day Active Trospium Chloride 20 MG 1 tablet at bedt helen on an empty stomach Orally Once a day Active clonazePAM 1 MG TAKE 1/2 TABLET BY M OUTH TWICE A DAY NEEDED Oral Active buPROPion HCl ER (XL) 150 MG 1 tablet in the morning Orally Once a day Active hydrOXYzine HCl 10 MG PLEASE SEE ATTACHE Boswell FOR DETAILED DIRECTIONS Oral Active Pyridium 200 MG 1 tablet after meals Orally Three times a day 11/14/2023 Active Rizatriptan Benzoate 10 MG take one tabl et daily as needed. may repeat in 2 hours if needed Oral Once a day as needed may repeat in 2 hours if needed Active Social History Tobacco Use: Social History Observation Description Date Details (start date - stop date) Never Smoker NA - NA Sex Assigned At : Social History Observation Description Sex Assigned At Female Tobacco Use/Smoking Question Answer Notes Patient is a nonsmoker Additional Findings: Tobacco Non-User Aggressive non-smoker Encounters Encounter Location Date Provider Diagnosis Adarsh Palacio III, MD [address] [place] [address] [place] [address] 04/03/2024 Adarsh Palacio Migraine G43.909 ; Tachycardia R00.0 ; Interstitial cystitis N30.10 ; Left medial knee pain M25.562 ; Seizure R56.9 and Depression F32.9 Assessments Encounter Date Diagnosis (ICD Code) Assessment Notes Treatment Notes Treatment Clinical Notes 04/03/2024 Migraine (ICD-10 - G43.909) She reports having relationship stress in her life which is causing her to have more frequent migraines and cluster headaches. We discussed ways in which the stress could be reduced. 04/03/2024 Tachycardia (ICD-10 - R00.0) It is unclear what the episode of tachycardia represents. It was not accompanied by chest pain. It has not happened since. If it happens again she will go the emergency room. She was given an appointment. 04/03/2024 Interstitial cystitis (ICD-10 - N30.10) She is experienciing increasing pain and dysuria from a flareup of her symptoms. We are referring her to urology. 04/03/2024 Left medial knee pain (ICD-10 - M25.562) She reports occasional twinges in the left knee but is ambulating without difficulty. 04/03/2024 Seizure (ICD-10 - R56.9) No seizures have occurred. No change in her medications was necessary. Observation for this complaint will continue. 04/03/2024 Depression (ICD-10 - F32.9) She reports that there is increased stress in her life but that she is not more depressed. He is maintaining her weight and doing well. She is able to conduct all of the activities of daily life and to take positive steps with the stress in her life. Plan Of Treatment Medication Medication Name Sig Start Date Stop Date Notes FLUoxetine HCl 20 MG 1 capsule Orally Once a day Trospium Chloride 20 MG 1 tablet at bedt helen on an empty stomach Orally Once a day clonazePAM 1 MG TAKE 1/2 TABLET BY M OUTH TWICE A DAY NEEDED Oral buPROPion HCl ER (XL) 150 MG 1 tablet in the morning Orally Once a day hydrOXYzine HCl 10 MG PLEASE SEE SCALE CLERK D FOR DETAILED DIRECTIONS Oral Pyridium 200 MG 1 tablet after meals Orally Three times a day 11/14/2023 Rizatriptan Benzoate 10 MG take one tabl et daily as needed. may repeat in 2 hours if needed Oral Once a day as needed may repeat in 2 hours if needed Next Appt Details Follow Up: 2 Weeks, Reason: OV Provider Name:Adarsh Mckeonne , 08/16/2025 09:30:00 AM, [address] [place] [address] DR, [address], [place], [address], Progress Notes * Corina GARCIA MDOB:[birth year] (53 yo F)Acc No.[id number]:04/03/2024 Patient: Dinora brittanysonnyCorina kelly Shoaib Provider: Nataliia Palacio MD :1970 A ge:53 Y S ex:Female Date:04/03/2024 Address: [address] [place], [id number] Subjective: * Chief Complaints: * T achycardiaDyspnea * HPI: * : This telehealth visit took place over 15 minutes with the patient at home and me in my office. She gave consent for billing. She recently developed a problem with a tooth and is going to have oral surgery. She had an episode when her heart began to beat rapidly and she was short of breath. She went to an emergency room recently was told she had an abscess in her tooth. She was referred to an oral surgeon in [place] who extracted the tooth. Her heart rate was irregular. It has not happened since. She was given an appointment to come to the office. She was told to return to the emergency room as happens again. Telehealth L ocation of provider rendering services: { ...} [address] [facility] [address] L ocation of patient: a ddress listed in demographics for today's visit P atient identification confirmed using: N haris, T elehealth method: T elephone only. Patient not visible to care provider. C onsent: P atient verbally consented to treatment, Patient verbally consented to billing insurance company, Patient informed of any privacy concerns related to method of visit T otal time spent with patient (mins) 1 5 * ROS: G eneral/Constitutional: pain R ecent toothache. C hills d enies. F atigue a dmits. F ever d enies. E NT: Decreased hearing d enies. R espiratory: Cough d enies. C ardiovascular: Chest pain with exertion d enies. D yspnea on exertion?denies. S hortness of breath d enies. G astrointestinal: Constipation d enies. D ecreased appetite d enies.?Diarrhea d enies. H eartburn d enies. N ausea d enies. R ectal bleeding?denies. V omiting d enies. H ematology: bruising d enies. p etechiae d enies. S wollen glands n one have been noted. G enitourinary: Frequent urination a t night. M usculoskeletal: Muscle aches d enies. P ainful joints d enies. S ciatica d enies. W eakness d enies. S kin: Itching d enies. R alexandre d enies. S kin lesion(s)?denies. N eurologic: Difficulty speaking d enies. D izziness d enies.?Headache d enies. L ow back pain d enies. P sychiatric: Depressed mood d enies. * Medical History: * Surgical History: B ilateral carpal tunnel surgery Ulnar nerve release at elbow, [place] eye surgery First colonoscopy age 49. [facility] Fibroid surgery, [place] Dental extraction 2023 * Hospitalization/Major Diagno stic Procedure: S yncope [...] ggressive non-smoker S he was born in [place], [place]. She is but currently engaged, Leon Alvarez who is a precinct police sergeant. She has no children. 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 Prior to that she worked at [employer]. he canceled. She has no toxic exposures. She has no methodist objections to blood transfusion. She lives in [place], [place]. At one point in her life. She lived in [place], [place]. Her mammograms have been done at [facility]. Her colonoscopy was at [facility]. She is under the care of a chemical dependency counselor and a psychiatrist. She has never smoked [...] o Known Drug Allergyno[Allergies Verified] Objective: * P ast Orders: Imaging:MM tomosynthesis scr eening BI * Order Date 01/11/2024 01/04/2023 Assessment: * Assessment: 1. T achycardia - R00.0, It is unclear what the episode of tachycardia represents. It was not accompanied by chest pain. It has not happened since. If it happens again she will go the emergency room. She was given an appointment. 2 . M igraine - G43.619, She reports having relationship stress in her life which is causing her to have more frequent migraines and cluster headaches. We discussed ways in which the stress could be reduced. 3 . I nterstitial cystitis - N30.10, She is experienciing increasing pain and dysuria from a flareup of her symptoms. We are referring her to urology. 4 . L eft medial knee pain - M25.562, She reports occasional twinges in the left knee but is ambulating without difficulty. 5 . S eizure - R56.9, No seizures have occurred. No change in her medications was necessary. Observation for this complaint will continue. 6 .?Depression - F32.9, She reports that there is increased stress in her life but that she is not more depressed. He is maintaining her weight and doing well. She is able to conduct all of the activities of daily life and to take positive steps with the stress in her life. Plan: * Treatment: 2. O thers Continue Trospium Chloride Tablet, 20 [...] DAY NEEDED, Oral. ? * Procedure Codes: 9 [id number] PHONE E/M BY PHYS 11-20 MIN * Preventive Medicine: Counseling: C are goal follow-up plan: Counseling for abnormal BMI given Y es Below Normal BMI Follow-up D ietary education for weight gain * Follow Up: 2 Weeks (Reason: OV) * Images: * Sign off status: Completed true * Provider: Nataliia Palacio MD Date: 0 04/03/2024 Generated for Alma escobedo/Tray/Loulou on: 10/14/2024 09:08 AM EST History and Physical Notes * HPI (History of Present Illness) Category Sub-Category Detail Notes Telehealth Location of [facility] rendering services:: {...} [address] [place] [address] Location of patient:: address listed in demographics for today's visit Patient identification confirmed using:: Name, Telehealth method:: Telephone only. Chloe ent not visible to care provider. Consent:: Patient verbally c onsented to treatment, Patient verbally consented to billing insurance company, Patient informed of any privacy concerns related to method of visit Total time spent with patient (mins): 15
--- OUTSIDE RECORDS SUMMARY | 2024-04-18 12:00 | XMS_ITS ---
Author Organization Adarsh Palacio III, MD Address [address] [address] Care Team Providers Care Leather Carver Name Role Phone Dr. Adarsh Palacio III Primary Care Provider REASON FOR VISIT Follow up Social History Sex Assigned At : Social History Observation Description Sex Assigned At Female Encounters Encounter Location Date Provider Diagnosis Adarsh Palacio III, MD [address] [place] [address] [place] [address] 04/18/2024 Adarsh Palacio Plan Of Treatment Next Appt Details Provider Name:Adarsh Palacio , 08/16/2025 09:30:00 AM, [address] [place] [address] [address], [place], [address], Progress Notes * Corina GARCIA MDOB:[birth year] (55 yo F)Acc No.[id number]:04/18/2024 Progress Notes Patient: Dinora GRANTCorina Wright Provider: Nataliia Palacio MD :1970 A ge:53 Y S ex:Female Date:04/18/2024 Address:[address] [id number] Subjective: * Chief Complaints: * 1 . Follow up. * Medical History: Objective: * Vitals: Assessment: Plan: * Treatment: * Images: * The named appointment provid er may or may not be the originator of this progress note, and it is not deemed complete until electronically signed by the appointment provider. Sign off status: Pending * Provider: Nataliia Palacio MD Date: 0 04/18/2024 Generated for Jayi gregg/Tray/Ottoitting on: 1 10/14/2024 09:08 AM EST
--- OUTSIDE RECORDS SUMMARY | 2024-07-16 03:14 | XMS_ITS ---
Author Organization Adarsh Palacio III, MD Address [address] [place] [address] Care Team Providers Care Continuity Reader Name Role Phone Dr. Adarsh Palacio III Primary Care Provider Medications Medication SIG (Take, Route, Frequency, Duration) Notes Start Date End Date Status Rizatriptan Benzoate 10 MG 1 tablet Oral ly Once a day for 30 days 07/16/2024 Active Social History Sex Assigned At : Social History Observation Description Sex Assigned At Female Encounters Encounter Location Date Provider Diagnosis Adarsh Palacio III, MD [address] [place] [address] [place] [address] 07/16/2024 Adarsh Palacio Plan Of Treatment Medication Medication Name Sig Start Date Stop Date Notes Rizatriptan Benzoate 10 MG 1 tablet Oral ly Once a day for 30 days 07/16/2024 Next Appt Details Provider Name:Adarsh Palacio , 08/16/2025 09:30:00 AM, [address] [place] [address] [address] [place], [address], Progress Notes * Corina GARCIA MDOB:[birth year] (53 yo F)Acc No.[id number]:07/16/2024 Patient: Dinora Corina JARA :1970 A ge:53 Y S ex:Female Address:[address] [place], [address] * Refills Start Rizatriptan Benzoate Tablet, 10 MG, Orally, 30, 1 tablet, Once a day, 30 days, Refills=11 * true * Date: Generated for Alma escobedo/Tray/Loulou on: 10/14/2024 09:09 AM EST
--- OUTSIDE RECORDS SUMMARY | 2024-07-20 09:45 | XMS_ITS ---
Author Organization Adarsh Palacio III, MD Address [address] [place] [address] Care Team Providers Care Registered Nurse First Assistant Name Role Phone Dr. Adarsh Palacio III Primary Care Provider [phone] Allergies Allergen (clinical drug ingredient) Drug/Non Drug Allergy documented on EMR Reaction Allergy Type Onset Date Status No Known Drug Allergy Unknown Drug Allergy Active Results Component Value Reference Range Notes URINE DIP STICK Reviewed date:07/20/2024 03:24:42 PM Interpretation: Performing Lab: Notes/Report: SG 1.025 1.005 - 1.025 pH 6.0 5.0 - 9.0 DON Negative Negative - NIT Negative Negative - PRO 15 Negative - Trace GLU Negative Negative - KET 5 Negative - UBG 0.2 0.1 - 1.8 MELE Negative 0.2 - 1.3 BLD 50 Negative - Reason For Referral Reason Consult and Treat Routine Skin Check Acne Diagnosis 1 Acne (L70.9) Referral Organization Adarsh Palacio III, MD Referring Provider First Name Adarsh Referring Provider Last Name Hakeem Referring Provider Speciality Internal M edicine Referred Provider PATRIA SAXENA Referred Provider Specialty Dermatology General Notes D 07/24/2024 09:45:13 AM > Faxed referral with progress note, 07/30/2024 01:28:41 PM > Office received referral has not been scheduled. patient will need an out of network referral, 07/30/2024 01:50:42 PM > Insurance referral completed and faxed, Andreia 08/23/2024 10:59:11 AM > patient is scheduled for 12/13/2023 @ 8am Referral Priority Routine Referral Appointment Date 12/12/2024 REASON FOR VISIT Annual Exam Medications Medication SIG (Take, Route, Frequency, Duration) Notes Start Date End Date Status Rizatriptan Benzoate 10 MG take one tabl et daily as needed. may repeat in 2 hours if needed Oral Once a day as needed may repeat in 2 hours if needed Active clonazePAM 1 MG TAKE 1/2 TABLET BY M OUTH TWICE A DAY NEEDED Oral Active buPROPion HCl ER (XL) 150 MG 1 tablet in the morning Orally Once a day Active Pyridium 200 MG 1 tablet after meals Orally Three times a day 11/14/2023 Active hydrOXYzine HCl 10 MG PLEASE SEE LUNCH COUNTER MANAGER D FOR DETAILED DIRECTIONS Oral Active FLUoxetine HCl 20 MG 1 capsule Orally [...] nonsmoker Additional Findings: Tobacco Non-User Aggressive non-smoker Tobacco Control (Standard) Question Answer Notes Tobacco use: Nonsmoker Additional Findings: Tobacco non-user Aggressive nonsmoker AUDIT-C (Standard) Question Answer Notes Did you have a drink containing alcohol in the p ast year? No Points 0 Interpretation Negative Problems Problem Type SNOMED Code ICD Code Onset Dates Problem Status W/U Status Risk Notes Problem 442511306 Underweight (R63.6) Active confirmed Her body mass index is 19. Her depression is improving. She was given an appointment to come as he is to measure her weight. Vital Signs Temperature 101 degrees Fahrenheit 4 Blood pressure systolic 118 mm Hg 07/20/20 24 Blood pressure diastolic 75 mm Hg 024 Heart Rate 90 /min 07/20/2024 Height 66 in 07/20/2024 Weight 119 lbs 07/20/2024 BMI 19.21 kg/m2 07/20/2024 Encounters Encounter Location Date Provider Diagnosis Adarsh Palacio III, MD [address] [place] [address] [address] [place], [place] [id number] 07/20/2024 Adarsh Palacio Migraine G43.909 ; Depression F32.9 ; Interstitial cystitis N30.10 ; Left medial knee pain M25.562 ; Bilateral carpal tunnel syndrome G56.03 ; Environmental allergies Z91.09 and Underweight R63.6 Assessments Encounter Date Diagnosis (ICD Code) Assessment Notes Treat ment Notes Treatment Clinical Notes 07/20/2024 Migraine (ICD-10 - G43.909) She reports having ended a relationship that caused her severe stress. She has now been having many fewer headaches. This has reduce the stress in her life significantly. 07/20/2024 Depression (ICD-10 - F32.9) She reports that there is increased stress in her life but that she is not more depressed. He is maintaining her weight and doing well. She is able to conduct all of the activities of daily life and to take positive steps with the stress in her life. 07/20/2024 Interstitial cystitis (ICD-10 - N30.10) She is experienciing increasing pain and dysuria from a flareup of her symptoms. We are referring her to urology. 07/20/2024 Left medial knee pain (ICD-10 - M25.562) She reports occasional twinges in the left knee but is ambulating without difficulty. 07/20/2024 Bilateral carpal tunnel syndrome (ICD-10 - G56.03) When she was living in [place], [place]. She had bilateral carpal tunnel surgery and is now stable. The pain has been relieved. 07/20/2024 Environmental allergies (ICD-10 - Z91.09) She is having no allergies at this time. 07/20/2024 Underweight (ICD-10 - R63.6) Her body mass index is 19. Her depression is improving. She was given an appointment to come as he is to measure her weight. Plan Of Treatment Medication Medication Name Sig Start Date Stop Date Notes Rizatriptan Benzoate 10 MG take one tabl et daily as needed. may repeat in 2 hours if needed Oral Once a day as needed may repeat in 2 hours if needed clonazePAM 1 MG TAKE 1/2 TABLET BY M OUTH TWICE A DAY NEEDED Oral buPROPion HCl ER (XL) 150 MG 1 tablet in the morning Orally Once a day Pyridium 200 MG 1 tablet after meals Orally Three times a day 11/14/2023 hydrOXYzine HCl 10 MG PLEASE SEE ATTACHE Boswell FOR DETAILED DIRECTIONS Oral FLUoxetine HCl 20 MG 1 capsule Orally Once a day Trospium Chloride 20 MG 1 tablet at bedt helen on an empty stomach Orally Once a day Referrals Referral Date Details 07/20/2024 07/20/2024, Consult and Treat Routine Skin Check Acne, PATRIA SAXENA Next Appt Details Follow Up: 4 Months, To be s cheduled, Reason: OV, Colonoscopy Provider Name:Adarsh Mckeonne , 08/16/2025 09:30:00 AM, [address] [place], [place] [address]AYAH, [place], [id number], Progress Notes * Corina GARCIA MDOB:[birth year] (54 yo F)Acc No.[id number]:07/20/2024 Progress Notes Patient: Corina SALDAÑA Provider: Nataliia Palacio MD :[id number] A ge:53 Y S ex:Female Date:07/20/2024 Address:[address] [place], [place] [id number] Subjective: * Chief Complaints: * A nnual Exam * HPI: D epression Screening: PHQ-9 L ittle interest or pleasure in doing things?Several days F eeling down, depressed, or hopeless S everal days T rouble falling or staying asleep, or sleeping too much M ore than half the days F eeling tired or having little energy M ore than half the days P oor appetite or overeating S everal days F eeling bad about yourself or that you are a failure, or have let yourself or your family down S everal days T rouble concentrating on things, such as reading the newspaper or watching television S everal days M oving or speaking so slowly that other people could have noticed; or the opposite, being so fidgety or restless that you have been moving around a lot more than usual N ot at all T houghts that you would be better off or of hurting yourself in some way N ot at all T otal Score 9 I nterpretation M ild Depression C OVID-19 Screening: Questions H ave you experienced fever, chills, cough, sore throat, shortness of breath, difficulty breathing, muscle aches, loss of taste or smell? N o H ave you been exposed to the virus within the last 10 days? N o H ave you travelled internationally in the last 10 days? N o H ave you been exposed to COVID-19 in the past? N o S GALINA Questions: SDOH Questions I n the past year have you been worried about losing your housing? N o I n the past year have you or any family members you live with been unable to get any of the following when it was really needed? Check all that apply: N one * : The patient, a 53-year-old female, presented with a mild flare of interstitial cystitis for the past week, which she attributes to stress and certain foods. She reported that her symptoms have improved since her last visit due to reduced stress levels. She also mentioned occasional pain in her right elbow and some weakness, but it does not prevent her from doing anything. She has been experiencing some numbness in her hands post carpal tunnel surgery, but it is not frequent. She also reported a weight gain of 10 lbs. Blood Sugar Level is 109. * ROS: G eneral/Constitutional: pain o nly normal aches and pains. C hills d enies.?Fatigue a dmits. F ever d enies. A dmits W eight gain. E NT: Decreased hearing d enies. R espiratory: Cough d enies. C ardiovascular: Chest pain with exertion d enies. D yspnea on exertion?denies. S hortness of breath d enies. G astrointestinal: Constipation o ccasional. D ecreased appetite d enies. D iarrhea d enies. H eartburn d enies. N ausea d enies. R ectal bleeding d enies. [...] pain d enies. P sychiatric: Depressed mood w hich is mild. * Medical History: * Surgical History: B ilateral carpal tunnel surgery Ulnar nerve release at elbow, [place] [facility] First colonoscopy age 49. [facility] Fibroid surgery, [place] [facility] extraction arpal tunnel surgery * Hospitalization/Major Diagno stic Procedure: S yncope 04/2022No history * Family History: F ather: alive 71 yrs, diagnosed with HTN, CVD, DM. M other: 65 yrs. S iblings: alive, diagnosed with DM, HTN. 1 sister(s) . . Her parents are alive and well as is her sister. There is no family history of inherited cancers. * Social History: T obacco Use: T obacco Use/Smoking P atient is a n onsmoker A dditional Findings: Tobacco Non-User A ggressive non-smoker Tobacco Control (Standard) T obacco use: N onsmoker A dditional Findings: Tobacco non-user A ggressive nonsmoker D rugs/Alcohol: D rugs H ave you used drugs other than those for medical reasons in the past 12 months? Y es M arijuana? Y es Edible Cannabis for sleep and migraines. D rug/Alcohol: A MATILDA-C (Standard) D id you have a drink containing alcohol in the past year? N o P oints 0 I nterpretation N egative S he was born in [place], [place]. She is but currently engaged, Leon Alvarez who is a police records clerk. She has no children. 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 Prior to that she worked at [employer]. he canceled. She has no toxic exposures. She has no nondenominational objections to blood transfusion. She lives in [place], [place]. At one point in her life. She lived in [place], [place]. Her mammograms have been done at [facility]. Her colonoscopy was at [facility]. She is under the care of a cv rn and a psychiatrist. She has never smoked cigarettes. * Medications: T akingRizatriptan Benzoate 10 MG Tablet take one tablet daily as needed. may repeat in 2 hours if needed Oral Once a day as needed may repeat in 2 hours if needed Trospium Chloride 20 MG Tablet 1 tablet at bedtime on an empty stomach Orally Once a day FLUoxetine HCl 20 MG Capsule 1 capsule Orally Once a day buPROPion HCl ER (XL) 150 MG Tablet Extended Release 24 Hour 1 tablet in the morning Orally Once a day clonazePAM 1 MG Tablet TAKE 1/2 TABLET BY MOUTH TWICE A DAY NEEDED Oral hydrOXYzine HCl 10 MG Tablet PLEASE SEE ATTACHED FOR DETAILED DIRECTIONS Oral Pyridium 200 MG Tablet 1 tablet after meals Orally Three times a day Medication List reviewed and reconciled with the patientTaking Rizatriptan Benzoate 10 MG Tablet take one tablet daily as needed. may repeat in 2 hours if needed Oral Once a day as needed may repeat in 2 hours if needed Taking Trospium Chloride 20 MG Tablet 1 tablet at bedtime on an empty stomach Orally Once a day Taking FLUoxetine HCl 20 MG Capsule 1 capsule Orally Once a day Taking buPROPion HCl ER (XL) 150 MG Tablet Extended Release 24 Hour 1 tablet in the morning Orally Once a day Taking clonazePAM 1 MG Tablet TAKE 1/2 TABLET BY MOUTH TWICE A DAY NEEDED Oral Taking hydrOXYzine HCl 10 MG Tablet PLEASE SEE ATTACHED FOR DETAILED DIRECTIONS Oral Taking Pyridium 200 MG Tablet 1 tablet after meals Orally Three times a day Medication List reviewed and reconciled with the patient * Allergies: N o Known Drug Allergyno[Allergies Verified] Objective: * Vitals: H t: 66, Wt: 119, BMI:19.21, BP: 118/75, HR: 90, Temp: 101, Wt-k.98. * P ast Orders: Lab:[facility]prehensive [place]. Pane l Fast * Collection Date 07/17/2024 11/14/2023 Collection Time 08:45 AM 11:47 AM Order Date 07/17/2024 11/14/2023 Sodium 143 (Ref Range: 135-145 mmol/L) 141 (Ref Range: 135-145 mmol/L) Bilirubin Total 0.6 (Ref Range: 0.0-1.0 mg/dL) 0.7 (Ref Range: 0.0-1.0 mg/dL) Aspartate Amino Transferase 19 (Ref Range: 5-31 U/L) 17 (Ref Range: 5-31 U/L) Alanine Aminotransferase 21 (Ref Range: 0-31 U/L) 14 (Ref Range: 0-31 U/L) Total Protein 6.5 (Ref Range: 6.5-8.0 g/dL) 7.1 (Ref Range: 6.5-8.0 g/dL) Albumin Level 4.2 (Ref Range: 3.5-5.0 g/dL) 4.5 (Ref Range: 3.5-5.0 g/dL) Alkaline Phosphatase 57 (Ref Range: 39-117 U/L) 54 (Ref Range: 39-117 U/L) Potassium 4.1 (Ref Range: 3.3-5.1 mmol/L) 4.0 (Ref Range: 3.3-5.1 mmol/L) Chloride 108 (Ref Range: 96-108 mmol/L) 102 (Ref Range: 96-108 mmol/L) Carbon Dioxide 28 (Ref Range: 22-29 mmol/L) 29 (Ref Range: 22-29 mmol/L) Anion Gap 11 L (Ref Range: 12-20) 14 (Ref Range: 12-20) Blood Urea Nitrogen 11 (Ref Range: 9-16 mg/dL) 15 (Ref Range: 9-16 mg/dL) Creatinine 0.86 (Ref Range: 0.5-1.4 mg/dL) 0.84 (Ref Range: 0.5-1.4 mg/dL) Estimated Glomerular Filt Rate > 60 > 60 Glucose Fasting 109 H (Ref Range: 60-99 mg/dL) 100 H (Ref Range: 60-99 mg/dL) Calcium 9.3 (Ref Range: 8.4-10.2 mg/dL) 10.2 (Ref Range: 8.4-10.2 mg/dL) * Lab:Lipid Panel * Collection Date 07/17/2024 11/14/2023 07/16/2023 Collection Time 08:45 AM 11:47 AM 09:38 AM Order Date 07/17/2024 11/14/2023 07/16/2023 Triglycerides 59 (Ref Range: <150 mg/dL) 82 (Ref Range: <150 mg/dL) 63 (Ref Range: <150 mg/dL) Cholesterol 233 H (Ref Range: <200 mg/dL) 226 H (Ref Range: <200 mg/dL) 258 H (Ref Range: <200 mg/dL) LDL Cholesterol Calculated 137 H (Ref Range: <100 mg/dL) 132 H (Ref Range: <100 mg/dL) 160 H (Ref Range: <100 mg/dL) HDL Cholesterol 85 (Ref Range: >40 mg/dL) 78 (Ref Range: >40 mg/dL) 86 (Ref Range: >40 mg/dL) * Lab:Complete Blood Count Aut o Diff * Collection Date 07/17/2024 11/14/2023 07/16/2023 Collection Time 08:45 AM 11:47 AM 09:38 AM Order Date 07/17/2024 11/14/2023 07/16/2023 White Blood Count 6.6 (Ref Range: 4.8-10.8 X10*3/uL) 7.4 (Ref Range: 4.8-10.8 X10*3/uL) 8.1 (Ref Range: 4.8-10.8 X10*3/uL) Red Blood Count 4.58 (Ref Range: 4.20-5.50 X10*6/uL) 4.52 (Ref Range: 4.20-5.50 X10*6/uL) 4.52 (Ref Range: 4.20-5.50 X10*6/uL) Hemoglobin 14.2 (Ref Range: 12.0-16.0 g/dl) 14.4 (Ref Range: 12.0-16.0 g/dl) 14.1 (Ref Range: 12.0-16.0 g/dl) Hematocrit 42.2 (Ref Range: 37.0-47.0 %) 41.6 (Ref Range: 37.0-47.0 %) 41.1 (Ref Range: 37.0-47.0 %) Mean Corpuscular Volume 92.1 (Ref Range: 80.0-98.0 fL) 92.0 (Ref Range: 80.0-98.0 fL) 90.9 (Ref Range: 80.0-98.0 fL) Mean Corpuscular Hemoglobin 31.0 (Ref Range: 27.0-33.0 pg) 31.9 (Ref Range: 27.0-33.0 pg) 31.2 (Ref Range: 27.0-33.0 pg) Mean Corpuscular HGB Conc 33.6 (Ref Range: 31.0-35.0 g/dl) 34.6 (Ref Range: 31.0-35.0 g/dl) 34.3 (Ref Range: 31.0-35.0 g/dl) Red Cell Distribution Width 12.9 (Ref Range: 11.0-16.0 %) 12.7 (Ref Range: 11.0-16.0 %) 12.5 (Ref Range: 11.0-16.0 %) Platelet Count 273 (Ref Range: 160-400 X10*3/uL) 282 (Ref Range: 160-400 X10*3/uL) 274 (Ref Range: 160-400 X10*3/uL) Mean Platelet Volume 9.5 (Ref Range: 9.4-12.3 fL) 10.4 (Ref Range: 9.4-12.3 fL) 10.2 (Ref Range: 9.4-12.3 fL) Neutrophils Percent Auto 66.0 (Ref Range: 45-73 %) 73.1 H (Ref Range: 45-73 %) 79.9 H (Ref Range: 45-73 %) Imm Gran Pct Auto 0.3 (Ref Range: 0.0-0.4 %) 0.4 (Ref Range: 0.0-0.4 %) 1.1 H (Ref Range: 0.0-0.4 %) Lymphocytes Percent Auto 24.0 (Ref Range: 20-40 %) 19.0 L (Ref Range: 20-40 %) 12.5 L (Ref Range: 20-40 %) Monocytes Percent Auto 7.5 (Ref Range: 2-11 %) 6.2 (Ref Range: 2-11 %) 5.5 (Ref Range: 2-11 %) Eosinophils Percent Auto 1.7 (Ref Range: 0-4 %) 0.8 (Ref Range: 0-4 %) 0.6 (Ref Range: 0-4 %) Basophils Percent Auto 0.5 (Ref Range: 0-2 %) 0.5 (Ref Range: 0-2 %) 0.4 (Ref Range: 0-2 %) NRBC Pct Auto 0.0 (Ref Range: 0.0-0.2 /100WBC) 0.0 (Ref Range: 0.0-0.2 /100WBC) 0.0 (Ref Range: 0.0-0.2 /100WBC) Neutrophils Absolute Auto 4.3 (Ref Range: 2.0-8.3 x10*3/uL) 5.4 (Ref Range: 2.0-8.3 x10*3/uL) 6.4 (Ref Range: 2.0-8.3 x10*3/uL) Imm Gran Abs Auto 0.02 (Ref Range: 0.00-0.03 X10*3/uL) 0.03 (Ref Range: 0.00-0.03 X10*3/uL) 0.09 H (Ref Range: 0.00-0.03 X10*3/uL) Lymphocytes Absolute Auto 1.6 (Ref Range: 1.2-4.9 X10*3/uL) 1.4 (Ref Range: 1.2-4.9 X10*3/uL) 1.0 L (Ref Range: 1.2-4.9 X10*3/uL) Monocytes Absolute Auto 0.5 (Ref Range: 0.1-1.2 X10*3/uL) 0.5 (Ref Range: 0.1-1.2 X10*3/uL) 0.4 (Ref Range: 0.1-1.2 X10*3/uL) Eosinophils Absolute Auto 0.1 (Ref Range: 0.0-0.4 X10*3/uL) 0.1 (Ref Range: 0.0-0.4 X10*3/uL) 0.1 (Ref Range: 0.0-0.4 X10*3/uL) Basophils Absolute Auto 0.0 (Ref Range: 0.0-0.2 X10*3/uL) 0.0 (Ref Range: 0.0-0.2 X10*3/uL) 0.0 (Ref Range: 0.0-0.2 X10*3/uL) NRBC Abs Auto 0.000 (Ref Range: 0.0-0.012 X10*3/uL) 0.000 (Ref Range: 0.0-0.012 X10*3/uL) 0.000 (Ref Range: 0.0-0.012 X10*3/uL) * Lab:URINE DIP STICK * Collection Date 07/20/2024 07/18/2023 Order Date 07/20/2024 07/18/2023 SG 1.025 (Ref Range: 1.005 - 1.025) 1.020 (Ref Range: 1.005 - 1.025) pH 6.0 (Ref Range: 5.0 - 9.0) 6.0 (Ref Range: 5.0 - 9.0) DON Negative (Ref Range: Negative -) Negative (Ref Range: Negative -) NIT Negative (Ref Range: Negative -) Negative (Ref Range: Negative -) PRO 15 (Ref Range: Negative - Trace) 15 (Ref Range: Negative - Trace) GLU Negative (Ref Range: Negative -) Negative (Ref Range: Negative -) KET 5 (Ref Range: Negative -) Negative (Ref Range: Negative -) UBG 0.2 (Ref Range: 0.1 - 1.8) 0.2 (Ref Range: 0.1 - 1.8) MELE Negative (Ref Range: 0.2 - 1.3) Negative (Ref Range: 0.2 - 1.3) BLD 50 (Ref Range: Negative -) Negative (Ref Range: Negative -) * Examination: G eneral Examination: GENERAL APPEARANCE: p leasant, well nourished, well developed, in no acute distress, calm and relaxed, underweight, woman. HEAD: a traumatic, normocephalic. EYES: e [...] LUNGS: c lear to auscultation . BREASTS: N ot examined. ABDOMEN: b owel sounds normal, no ascites, no organomegaly, no mass. RECTAL EXAM: n ot examined. MUSCULOSKELETAL: e xtremities unremarkable, no clubbing, cyanosis or edema, Normal range of motion without pain of the right elbow. PERIPHERAL PULSES: n ormal. NEUROLOGIC: a lert and oriented, cranial nerves 2-12 grossly intact, deep tendon reflexes 2+ symmetrical, motor strength normal upper and lower extremities, sensory exam intact. PSYCH: a lert, oriented, cooperative with exam, good eye contact, cognitive function intact, thought process logical, goal directed, mood depressed. Assessment: * Assessment: 1. M igraine - G43.909 (Primary) N otes :She reports having ended a relationship that caused her severe stress. S he has now been having many fewer headaches. This has reduce the stress in her life significantly. 2 . D epression - F32.9 N otes :She reports that there is increased stress in her life but that she is not more depressed. He is maintaining her weight and doing well. She is able to conduct all of the activities of daily life and to take positive steps with the stress in her life. 3 . I nterstitial cystitis - N30.10 N otes :She is experienciing increasing pain and dysuria from a flareup of her symptoms. We are referring her to urology. 4 . L eft medial knee pain - M25.562 N otes :She reports occasional twinges in the left knee but is ambulating without difficulty. 5 . B ilateral carpal tunnel syndrome - G56.03 N otes :When she was living in [place], [place]. She had bilateral carpal tunnel surgery and is now stable. The pain has been relieved. 6 . E nvironmental allergies - Z91.09 N otes :She is having no allergies at this time. 7 . U nderweight - R63.6 N otes :Her body mass index is 19. H er depression is improving. She was given an appointment to come as he is to measure her weight. Plan: * Treatment: 2. O thers Continue [...] MOUTH TWICE A DAY NEEDED, Oral. ? Referral To:PATRIA SAXENA Dermatology Reason:Consult and Treat Routine Skin Check Acne * Labs: * L ab: URINE DIP STICK (Collection Date & Time - 07/20/2024) Value Reference Range S G 1.025 1.005 - 1.025 * p H 6.0 5.0 - 9.0 * L EU Negative Negative - * N IT Negative Negative - * P RO 15 Negative - Trace * G HI Negative Negative - * K ET 5 Negative - * U BG 0.2 0.1 - 1.8 * B IL Negative 0.2 - 1.3 * B LD 50 Negative - * Procedure Codes: 8 1002 URINE-NO MICRO * Preventive Medicine: Counseling: C are goal follow-up plan: Counseling for abnormal BMI given Y es Below Normal BMI Follow-up D ietary education for weight gain, Dietary management education, guidance, and counseling, Feeding regime, Lifestyle education regarding diet, Nutrition / feeding management, Prescribed diet education, Special diet education, Intervention, Order not done: Medical or Other reason not done * Follow Up: 4 Months, To be scheduled (Reason: OV, Colonoscopy) * Images: * Sign off status: Completed true * Provider: Nataliia Palacio MD Date: Generated for Alma escobedo/Tray/eTransmitting on: 10/14/2024 09:09 AM EST History and Physical Notes * HPI (History of Present Illness) Category Sub-Category Detail Notes Depression Screening PHQ-9 Little inte rest or pleasure in doing things: Several days Feeling down, depressed, or hopeless: Se veral days Trouble falling or staying a sleep, or sleeping too much: More than half the days Feeling tired or having little energy: M ore than half the days Poor appetite or overeating: Several day s Feeling bad about yourself o r that you are a failure, or have let yourself or your family down: Several days Trouble concentrating on thi ngs, such as reading the newspaper or watching television: Several days Moving or speaking so slowly that other people could have noticed; or the opposite, being so fidgety or restless that you have been moving around a lot more than usual: Not at all Thoughts that you would be b bertrand off or of hurting yourself in some way: Not at all Total Score: 9 Interpretation: Mild Depression COVID-19 Screening Questions Have you had any new onset fever, chills, cough, congestion, sore throat, shortness of breath, muscle aches?: No Have you been exposed to the virus withi n the last 10 days?: No Have you travelled internationally in e last 10 days?: No Have you been exposed to COVID-19 in the past?: No SDOH Questions SDOH Questions In the past year have you been worried about losing your housing?: No In the past year have you or any family members you live with been unable to get any of the following when it was really needed? Check all that apply:: None Examination Category Sub-Category Detail Notes General Examination GENERAL APPEARANCE: pleasant , well nourished, well developed, in no acute distress, calm and relaxed, underweight, woman HEAD: atraumatic, normocep halic EYES: eomi, [...] lesion s, anicteric PERIPHERAL PULSES: normal BREASTS: Not examined MUSCULOSKELETAL: extremities unremark able, no clubbing, cyanosis or edema, Normal range of motion without pain of the right elbow LYMPH NODES: no enlarged lymph no tammy,spleen normal RECTAL EXAM: not examined PSYCH: alert, oriented, email marketing coordinator perative with exam, good eye contact, cognitive function intact, thought process logical, goal directed, mood depressed ORAL CAVITY: normal, unremarkable Consultation Request Notes Referral Date Referring Provider Referred Provider Not tg 07/20/2024 Adarsh Palacio PETER Consult and Tr eat Routine Skin Check Acne
--- OUTSIDE RECORDS SUMMARY | 2024-11-20 05:45 | XMS_ITS ---
Author Organization Adarsh Palacio III, MD Address [address] [place] [address] Care Team Providers Care Customs Officer Name Role Phone Dr. Adarsh Palacio III Primary Care Provider [phone] Allergies Allergen (clinical drug ingredient) Drug/Non Drug Allergy documented on EMR Reaction Allergy Type Onset Date Status No Known Drug Allergy Unknown Drug Allergy Active Reason For Referral Reason Consult and Treat Diagnosis 1 Right elbow pain (M2 5.521) Diagnosis 2 Right wrist pain (M2 5.531) Referral Organization Adarsh Palacio III, MD Referring Provider First Name Adarsh Referring Provider Last Name Hakeem Referring Provider Speciality Internal M edicine Referred Provider Leobardo Barroso, [facility] Referred Provider Specialty Orthopedic [facility] General Notes Marga Boswell 11/26/2024 10:39:39 AM > Referral faxed with progress note, patient was called and left a message notifying her that the referral was faxed and to contact their office directly to schedule her appointment within a week, Marga Boswell 12/06/2024 09:19:55 AM > Patient is being seen 12/07 @ 11am for her hand. Patient stated they will not see her for elbow until she gets prior records from another provider Referral Priority Routine Referral Appointment Date 12/07/2024 REASON FOR VISIT Stress, Frequent headaches, Prozac reduction Medications Medication SIG (Take, Route, Frequency, Duration) Notes Start Date End Date Status Rizatriptan Benzoate 10 MG take one tabl et daily as needed. may repeat in 2 hours if needed Oral Once a day as needed may repeat in 2 hours if needed Active clonazePAM 1 MG TAKE 1/2 TABLET BY M OUT TWICE A DAY NEEDED Oral Active buPROPion HCl ER (XL) 150 MG 1 tablet in the morning Orally Once a day Active Pyridium 200 MG 1 tablet after meals Orally Three times a day 11/14/2023 Active hydrOXYzine HCl 10 MG PLEASE SEE ATTACHE Boswell FOR DETAILED DIRECTIONS Oral Active FLUoxetine HCl [...] Nonsmoker Additional Findings: Tobacco non-user Aggressive nonsmoker Vital Signs Temperature 97.3 degrees Fahrenheit 11/20/19 25 Blood pressure systolic 139 mm Hg 11/20/19 25 Blood pressure diastolic 88 mm Hg 025 Heart Rate 78 /min 11/20/2024 Height 66 in 11/20/2024 Weight 124 lbs 11/20/2024 BMI 20.01 kg/m2 11/20/2024 Encounters Encounter Location Date Provider Diagnosis Adarsh Palacio III, MD [address] [place] [address] [address] [facility] [address] 11/20/2024 Adarsh Palacio Migraine G43.909 ; Depression F32.9 ; Interstitial cystitis N30.10 ; Seizure R56.9 and Left medial knee pain M25.562 Assessments Encounter Date Diagnosis (ICD Code) Assessment Notes Treatment Notes Treatment Clinical Notes 11/20/2024 Migraine (ICD-10 - G43.909) She says she is having fewer headaches now. She has ended a stressful relationship. Her depression is better. 11/20/2024 Depression (ICD-10 - F32.9) She has stopped the Wellbutrin and reduce the Prozac. I think this is acceptable. Her depression is clearly improved and the stress level is decreased. 11/20/2024 Interstitial cystitis (ICD-10 - N30.10) She is experienciing increasing pain and dysuria from a flareup of her symptoms. We are referring her to urology. 11/20/2024 Seizure (ICD-10 - R56.9) No seizures have occurred. No change in her medications was necessary. Observation for this complaint will continue. 11/20/2024 Left medial knee pain (ICD-10 - M25.562) She reports occasional twinges in the left knee but is ambulating without difficulty. Plan Of Treatment Medication Medication Name Sig [...] 11/14/2023 hydrOXYzine HCl 10 MG PLEASE SEE D FOR DETAILED DIRECTIONS Oral FLUoxetine HCl 20 MG 1 capsule Orally Once a day Trospium Chloride 20 MG 1 tablet at bedt helen on an empty stomach Orally Once a day Referrals Referral Date Details 11/20/2024 11/20/2024, Consult and Treat, [facility] Appt Details Follow Up: 6 Weeks, Reason: OV Provider Name:Adarsh Palacio , 08/16/2025 09:30:00 AM, [address] [place] [address] DR [facility] [place], [place], [address], Progress Notes * Corina GARCIA MDOB:[birth year] (54 yo F)Acc No.[id number]:11/20/2024 Progress Notes Patient: Dinoar Corina JARA Provider: Nataliia Palacio MD :1970 A ge:54 Y S ex:Female Date:11/20/2024 Address: [address] [id number] Subjective: * Chief Complaints: * S tressFrequent headachesProzac reduction * HPI: C OVID-19 Screening: She returns for ongoing follow-up of several problems. She has stopped her Wellbutrin and reduce her fluoxetine to 10 mg daily. She did this on her own without a recommendation from me. She says she feels better for it. She is under significant stress at home and at work which makes it hard to sleep. She denies any chest pain or shortness of breath.Her depression is stable. She has very few complaints about cystitis. Her knee pain is unchanged. She has had no allergy symptoms.She has gained 5 more pounds and her body mass index is now 20. She says she is feeling better. Questions H ave you had any new onset fever, chills, cough, congestion, sore throat, shortness of breath, muscle aches? N o * ROS: G eneral/Constitutional: pain o nly normal aches and pains. C hills d enies.?Fatigue a dmits. F ever d enies. E [...] tunnel surgery Ulnar nerve release at elbow, [place] [facility] First colonoscopy age 49. [facility] Fibroid surgery, [place] Dental extraction arpal tunnel surgery * Hospitalization/Major Diagno stic Procedure: S yncope 04/2022No history * Family History: F ather: alive 71 yrs, diagnosed with DM, HTN, CVD. M other: 65 yrs. S benjamin: alive, diagnosed with DM, HTN. 1 sister(s) . . Her parents are alive and well as is her sister. There is no family history of inherited cancers. * Social History: T obacco Use: T obacco Use/Smoking Carl gee is a n onsmoker A dditional Findings: Tobacco Non-User A ggressive non-smoker Tobacco Control (Standard) T obacco use: N onsmoker A dditional Findings: Tobacco non-user A ggressive nonsmoker S he was born in [place], [place]. She is but currently engaged, Leon Alvarez who is a police aide. She has no children. 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 Prior to that she worked at [employer]. he canceled. She has no toxic exposures. She has no scientology objections to blood transfusion. She lives in [place], [place]. At one point in her life. She lived in [place], [place]. Her mammograms have been done at [facility]. Her colonoscopy was at [facility]. She is under the care of a chauffeur and a psychiatrist. She has never smoked [...] Objective: * Vitals: H t: 66, Wt: 124, BMI:20.01, BP: 139/88, HR: 78, Temp: 97.3, Wt-k.25. * Examination: G eneral Examination: GENERAL APPEARANCE: p leasant, well nourished, well developed, in no acute distress, calm and relaxed, woman. HEAD: a traumatic, normocephalic. EYES: e [...] sensory exam intact. PSYCH: a lert, oriented, mood depressed. ? Assessment: * Assessment: 1. D epression - F32.9 (Primary) N otes :She has stopped the Wellbutrin and reduce the Prozac. I think this is acceptable. Her depression is clearly improved and the stress level is decreased. 2 . M igraine - G43.909 N otes :She says she is having fewer headaches now. She has ended a stressful relationship. Her depression is better. 3 . I nterstitial cystitis - N30.10 N otes :She is experienciing increasing pain and dysuria from a flareup of her symptoms. We are referring her to urology. 4 . S eizure - R56.9 N otes :No seizures have occurred. No change in her medications was necessary. Observation for this complaint will continue. 5 . L eft medial knee pain - M25.562 N otes :She reports occasional twinges in the left knee but is ambulating without difficulty. Plan: * Treatment: 2. O thers Continue [...] TWICE A DAY NEEDED, Oral. ? Referral To:[facility] Reason:Consult and Treat * Procedure Codes: * Follow Up: 6 Weeks (Reason: OV) * Images: * Sign off status: Completed true * Provider: Nataliia Palacio MD Date: 0 11/20/2024 Generated for Alma escobedo/Tray/Loulou on: 10/14/2024 09:08 AM EST History and Physical Notes * HPI (History of Present Illness) Category Sub-Category Detail Notes COVID-19 Screening Questions Have you had any new onset fever, chills, cough, congestion, sore throat, shortness of breath, muscle aches?: No Examination Category Sub-Category Detail Notes General Examination GENERAL APPEARANCE: pleasant , well nourished, well developed, in no acute distress, calm and relaxed, woman HEAD: atraumatic, normocep halic EYES: eomi, [...] RECTAL EXAM: not examined PSYCH: alert, oriented, moo d depressed ORAL CAVITY: normal, unremarkable Consultation Request Notes Referral Date Referring Provider Referred Provider Not es 11/20/2024 Adarsh Palacio [facility] Consult and Treat
--- OUTSIDE RECORDS SUMMARY | 2025-01-04 12:00 | XMS_ITS ---
Author Organization Adarsh Palacio III, MD Address [address] [place] [address] Care Team Providers Care Gis Instructor Name Role Phone Dr. Adarsh Palacio III Primary Care Provider REASON FOR VISIT Follow up Social History Sex Assigned At : Social History Observation Description Sex Assigned At Female Encounters Encounter Location Date Provider Diagnosis Adarsh Palacio III, MD [address] [place] [address] [place] [address] 01/04/2025 Adarsh Palacio Plan Of Treatment Next Appt Details Provider Name:Adarsh Palacio , 08/16/2025 09:30:00 AM, [address] [place] [address] [address], [place], [address], Progress Notes * Corina GARCIA MDOB:[birth year] (55 yo F)Acc No.[id number]:01/04/2025 Progress Notes Patient: Dinora GRANTCorina Wright Provider: Nataliia Palacio MD :1970 A ge:54 Y S ex:Female Date:01/04/2025 Address:[address] [id number] Subjective: * Chief [...] * Provider: Nataliia Palacio MD Date: 0 01/04/2025 Generated for Jayi gregg/Tray/Loulou on: 1 10/14/2024 09:09 AM EST
--- OUTSIDE RECORDS SUMMARY | 2025-07-22 12:30 | XMS_ITS ---
Author Organization Adarsh Palacio III, MD Address [address] [place] [address] Care Team Providers Care Public Address Servicer Name Role Phone Dr. Adarsh Palacio III Primary Care Provider REASON FOR VISIT Annual Exam Social History Sex Assigned At : Social History Observation Description Sex Assigned At Female Encounters Encounter Location Date Provider Diagnosis Adarsh Palacio III, MD [address] [place] [address] [place] [address] 07/22/2025 Adarsh Palacio Plan Of Treatment Next Appt Details Provider Name:Adarsh Palacio , 08/16/2025 09:30:00 AM, [address] [place] [address] [address], [place], [address], Progress Notes * [place] GARCIA MDOB:[birth year] (55 yo F)Acc No.[id number]:07/22/2025 Progress Notes Patient: Dinora GRANTCorina Wright Provider: Nataliia Palacio MD :1970 A ge:55 Y S ex:Female Date:07/22/2025 Address:[address] [id number] Subjective: * Chief Complaints: * 1 . Annual Exam. * Medical History: Objective: * Vitals: Assessment: Plan: * Treatment: * Images: * The named appointment provid er may or may not be the originator of this progress note, and it is not deemed complete until electronically signed by the appointment provider. Sign off status: Pending * Provider: Nataliia Palacio MD Date: 1 Generated for Alma escobedo/Tray/Loulou on: 1 10/14/2024 09:09 AM EST
--- OUTSIDE RECORDS SUMMARY | 2025-08-12 04:04 | XMS_ITS ---
Author Organization Adarsh Palacio III, MD Address [address] [place] [address] Care Team Providers Care Drier And Evaporator Operator Name Role Phone Dr. Adarsh Palacio III Primary Care Provider REASON FOR VISIT Lab Request Social History Sex Assigned At : Social History Observation Description Sex Assigned At Female Encounters Encounter Location Date Provider Diagnosis Adarsh Palacio III, MD [address] [place] [address] [place] [address] 08/12/2025 Adarsh Palacio Depression F32.9 ; Underweight R63.6 and Tachycardia R00.0 Assessments Encounter Date Diagnosis (ICD Code) Assessment Notes Treat ment Notes Treatment Clinical Notes 08/12/2025 Depression (ICD-10 - F32.9) 08/12/2025 Underweight (ICD-10 - R63.6) 08/12/2025 Tachycardia (ICD-10 - R00.0) Plan Of Treatment Pending Test Test Name Order Date PROFILE, FASTING (COMPREHENSIVE METABOLI C) 08/12/2025 CBC w DIFF 08/12/2025 Lipid Panel 08/12/2025 Next Appt Details Provider Name:Adarsh Palacio , 08/16/2025 09:30:00 AM, [address] [place] [address] [place], [address], Progress Notes * Corina GARCIA MDOB:[birth year] (55 yo F)Acc No.[id number]:08/12/2025 Patient: Dinora [place]ina JARA :1970 A ge:55 Y S ex:Female Address: [place], [address] Subjective: * Chief Complaints: * L ab Request * Medical History: * Surgical History: * Hospitalization/Major Diagno stic Procedure: * Medications: Objective: * Vitals: * Physical Examination: Assessment: * Assessment: 1. D epression - F32.9 2 . U nderweight - R63.6 3 . T achycardia - R00.0 Plan: * Treatment: 2. U nderweight L AB: PROFILE, FASTING (COMPREHENSIVE METABOLIC) L AB: CBC w DIFF L AB: Lipid Panel 3. T achycardia L AB: PROFILE, FASTING (COMPREHENSIVE METABOLIC) L AB: CBC w DIFF L AB: Lipid Panel * Procedure Codes: * true * Date: Generated for Alma escobedo/Tray/Loulou on: 10/14/2024 09:08 AM EST
--- OUTSIDE RECORDS SUMMARY | 2025-08-14 09:08 | XMS_ITS | Clinical Summary ---
Author Organization [facility] Address [address] [address] Phone Care Team Providers Care Paint Mixer Machine Name Role Phone Adarsh Palacio MD Primary Care Provider [phone] Allergies Active Allergy Reactions Criticality Noted Date Comments Gluten Protein 06/04/2021 Phs Other Free Text-See Phs Viewer 08/17/2010 Outdoor stimulus Medications traZODone (DESYREL) 50 MG tablet Take 50 mg by mouth as needed. Active FLUoxetine (PROZAC) 20 MG capsule Take 20 mg by mouth daily. Active rizatriptan (MAXALT) 5 MG tablet TAKE 1 TAB BY MOUTH NEEDED FOR MIGRAINE. MAY REPEAT IN 2 HOURS IF NEEDEDINX MAS IS 18TABS/MONTH 9 tablet 3 0 Active buPROPion (WELLBUTRIN XL) 300 MG ER 24 hr tablet 0 Active phenazopyridine (PYRIDIUM) 200 MG tablet TAKE 1 TABLET BY MOUTH THREE TIMES A DAY FOR 2 DAYS NOT COVERED 1 Active rizatriptan (MAXALT) 10 MG tabletIndication s:Migraine without aura and without status migrainosus, not intractable TAKE I TABLET DAILY NEEDED. MAY REPEAT IN 2 HOURS IF NEEDED 9 tablet 3 3 Active oxyCODONE-acetam inophen (PERCOCET) 5-325 mg per tablet Take 1-2 tablets by mouth every 6 (six) hours as needed for pain (specific location in comments). Partial fill ok 15 tablet 4 Active Active Problems Problem Noted Date Diagnosed Date Health care maintenance 06/05/2021 Assessment & Plan (06/05/2021 8:38 AM EDT): Screening labs ordered of parent 06/04/2021 Migraine without aura and wi thout status migrainosus, not intractable 06/04/2021 Assessment & Plan (06/05/2021 8:37 AM EDT): Recommend she use the rizatriptan first, if it usually works better, rather than slowly ramp up medications as the migraine persists. The goal is to stop the migraine completely ANKUSH, otherwise symptoms tend to linger. Depression 08/17/2019 Premenstrual tension syndrome 08/18/2010 Overview (11/23/2014): Premenstrual syndrome Dense breasts 08/18/2010 Overview (11/23/2014): Dense breasts Allergic rhinitis 08/18/2010 Overview (11/23/2014): Allergic rhinitis Bronchospasm 08/18/2010 Overview (11/23/2014): Bronchospasm; Occasional Pelvic pain 08/18/2010 Overview (11/23/2014): Pelvic Pain Night sweats 08/18/2010 Overview (11/23/2014): Night sweats Anxiety 06/05/2008 Overview (11/23/2014): Anxiety; atypical chest pain Uncoded H/O Abnormal pap test 09/08/2006 Overview (11/23/2014): H/O Abnormal pap test; normal colposcopy, all normal since 2001 Interstitial cystitis Overview (06/05/2021): Sees Urogynecology Assessment & Plan (06/05/2021 8:33 AM EDT): Phenazopyridine OTC PRN Seen with Urogynecology Immunizations Immunization Administration Dates Next Due COVID-19 (Pre-07/25) Pfizer Vaccine, mRNA, PF ,12/29/2020 Influenza Recombinant Megan valent Preservative Free IM 07/01/2020 Family History Medical History Relation Comments Heart disease Father Hypertension Father Depression Maternal Grandmother Diabetes Maternal Grandmother Depression Mother Type 2 Diabetes Mother Diabetes Mellitu s type 2 Heart attack Paternal Grandfather Myocardial Infarction Diabetes Paternal Grandmother Heart disease Paternal Grandmother cardiac betsy nts Depression Sister Type 2 Diabetes Sister Diabetes Mellitu s type 2 Relation Status Comments Father Alive Maternal Grandmother Mother Paternal Grandfather Paternal Grandmother Sister Alive Social History Tobacco Use Types Packs/Day Years [...] not to disclose 2023 7:33 PM EDT Last Filed Vital Signs Vital Sign Reading Time Taken Comments Blood Pressure 163/77 03/25/2024 8:57 PM EDT Pulse 87 03/25/2024 8:57 PM EDT Temperature 36.9 C (98.4 F) 03/25/2024 8:57 PM EDT Respiratory Rate 18 03/25/2024 8:57 PM EDT Oxygen Saturation 95% 03/25/2024 8:57 PM EDT Inhaled Oxygen Concentration - - Weight 52.2 kg (115 lb) 03/25/2024 6:10 PM EDT Height 167.6 cm (5' 6 ) 03/25/2024 6:10 PM EDT Body Mass Index 18.56 03/25/2024 6:10 PM EDT Plan of Treatment Health Maintenance Due Date Last Done Comments Adult Td,Tdap Booster 1970 HEPATITIS C SCREENING 1987 HIV ONE-TIME SCREENING (18-65 YEARS) 1987 PAP SMEAR 04/07/2013 04/07/2010 COLOGUARD 2014 FIT TEST 2014 FOBT 2014 SIGMOIDOSCOPY 2014 VIRTUAL COLONOSCOPY 2014 PNEUMOCOCCAL VACCINES (50+ years) (1 of 1 - PCV) 2019 ZOSTER VACCINES (1 of 2) 2019 DEPRESSION SCREENING 08/17/2020 08/17/2019 MAMMOGRAM 04/18/2022 04/18/2020, 12/02, 06/29/2013, Additional history exists INFLUENZA VACCINE (#1) 2025 07/01/2020 COVID-19 VACCINE (3 - 2024- season) 2025 01/19/2021, 12/29/2020 LIPID PANEL 06/17/2026 06/17/2021, 06/03, 08/17/2019 COLONOSCOPY 06/25/2030 06/25/2020 COLORECTAL CANCER SCREENING 06/25/2030 RSV VACCINE (1 - 1-dose 75+ series) 2044 SMOKING STATUS SCREENING (Once After 26 Yrs) Completed 06/04/2021 HEPATITIS A VACCINES Aged Out No long er eligible based on patient's age to complete this topic HIB VACCINES Aged Out No longer eligi ble based on patient's age to complete this topic IPV VACCINES Aged Out No longer eligi ble based on patient's age to complete this topic MENINGOCOCCAL VACCINES (ACWY) Aged Out No longer eligible based on patient's age to complete this topic MENINGOCOCCAL VACCINES (B) Aged Out N o longer eligible based on patient's age to complete this topic Medical Devices Not on file Procedures Procedure Name Priority Date/Time Associated Diagnosis Comments LIPID PANEL Routine 06/17/2021 9:29 AM EDT Health care maintenance HM COLONOSCOPY FOR RESULT ENTRY ONLY Routine 06/25/2020 BI MAMMOGRAM SCREENING WITH TOMOSYNTHESIS WITH CAD (BILATERAL) Routine 04/18/2020 9:56 AM EDT Screening for breast cancer PAP TEST Routine 04/07/2010 12:00 AM EDT from Last 3 Months or Most Recently Relevant to Health Maintenance Results * (ABNORMAL) Lipid panel (06/17/2021 9:29 AM EDT) HDL 81 mg/dL [facility] Comment: Interpretation <40 mg/dL: Low HDL cholesterol (major risk factor for CHD) Greater than or equal to 60 mg/dL: High HDL cholesterol ( negative risk factor for CHD) HDL - cholesterol is affected by a number of factors, e.g. smoking, excerise, hormones, sex and age. CHOLESTEROL 226 0 - 240 mg/dL [facility] TRIGLYCERIDES 52 30 - 160 mg/dL [facility] LDL 135(H) 50 - 129 mg/dL [facility] Comment: LDL levels in terms of risk for coronary heart disease: <100 mg/dL: Optimal 100-129 mg/dL: Near or above optimal 130-159 mg/dL: Borderline high 160-189 mg/dL: High >190 mg/dL: Very High CARDIAC RISK RATIO 2.8(L) 3.3 - 4.4 C [facility] Blood 06/17/2021 9:29 AM EDT 06/17/2021 9:33 AM EDT Nathalie Cotton MD LAB BLOOD BKR ORDERABLES Final R esult [address] [address] * COLONOSCOPY FOR RESULT ENTRY ONLY (06/25/2020) Historical Provider HEALTH MAINTENANCE Edited Result - Final * BI MAMMOGRAM SCREENING WITH TOMOSYNTHESIS WITH CAD (BILATERAL) (04/18/2020 9:56 AM EDT) Anatomical Region Laterality Modality Breast Left, Breast Right, Breast Bilateral Bila teral Mammography 04/29/2020 11:0 9 AM EDT Impressions 04/29/2020 11:13 AM EDT No mammographic signs of malignancy. Annual screening is recommended. BI-RADS CATEGORY: 2 - Benign finding. DENSITY: The breast tissue is extremely dense, an appearance which could obscure a lesion on mammography. POS - CDHMAMA Narrative 04/29/2020 11:13 AM EDT Bilateral mammography is performed in conjunction with computed aided detection. 3-D tomography along with 2-D C view imaging was also performed. Comparison made to previous dated as far back as 06/29/2013 and as recent as 12/22/2016. No suspicious masses, areas of architectural distortion or suspicious microcalcifications. A few scattered bilateral punctate microcalcifications are stable. Procedure Note Red Gilbert MD - 04/29/2020 Bilateral mammography is performed in conjunction with computed aideddetection. 3-D tomography along with 2-D C view imaging was alsoperformed. Comparison made to previous dated as far back as 06/29/2013 andas recent as 12/22/2016. No suspicious masses, areas of architectural distortion or suspiciousmicrocalcifications. A few scattered bilateral punctatemicrocalcifications are stable. IMPRESSION: No mammographic signs of malignancy. Annual screening is recommended. BI-RADS CATEGORY: 2 - Benign finding. DENSITY: The breast tissue is extremely dense, an appearance which couldobscure a lesion on mammography. POS - CDHMAMA Arleth Marquez RN IMG MG EXAMS Final Result * Pap Smear (04/07/2010 12:00 AM EDT) 04/07/2010 [facility] - 04/07/2010 12:00 AM EDT Accession Number: [id number] Report Status: Signed Type: Cytology Procedure Date: 04/07/2010 Ordering Provider: JOY HURTADO CYTOLOGIC INTERPRETATION: Tissue Type: Cervix, ThinPrep Specimen Adequacy: Satisfactory for evaluation. General Category: NEGATIVE FOR INTRAEPITHELIAL LESION OR MALIGNANCY. Interpretation: Reactive cellular changes This specimen was analyzed by the automated ThinPrep Imaging System ([employer]) and manually rescreened by block handler and/or pathologist. Pathologist: Calderon Sahni M.D. Clinical diagnosis & history: LMP: 03-30-10 History of HPV. control pills. Tissue-Designation: Cervix, Automated ThinPrep Gross description: One ThinPrep vial received. ____(signature on file)____ 04/13/10 (preliminary) ____(signature on file)____ 04/14/10 (Final) us Joy Hurtado MD CYTOLOGY ORDERABLES Final R esult [facility] [address] [place] [address], [facility] from Last 3 Months or Most Recently Relevant to Health Maintenance Insurance [facility]art [facility] [place] [id number] Care Teams Paint Mixer Machine Relationship Specialty Start Date End Date Adarsh Palacio MD [address] [place] [address] [place] [address] PCP - General Medical Oncology 03/25/24 Additional Source Comments The information contained in this document represents components of the legal health record. It is not the complete legal health record.[facility]
--- OUTSIDE RECORDS SUMMARY | 2025-08-14 09:08 | XMS_ITS | Encounter Summary ---
Author Organization [facility] Address [address] [place] [address] Phone Care Team Providers Care Transportation Planning Engineer Name Role Phone Nathalie Cotton MD Primary Care Provider [email or web address] Adarsh Palacio MD Primary Care Provider [phone]- [phone] Encounter Details Date Type Department Care Team (Late st Contact Info) Description 05/24/2023 Procedure [facility], Ct Scan - [address] [address] Social History Tobacco Use Types Packs/Day Years [...] Answer Date Recorded Are you interested in help w ith more adult education (for example, completing high school, GED, job training, learning the Italian language, technical skills, or developing parenting skills)? No 06/04/2021 Food Answer Date Recorded Within the past [...] with a working camera? Not on file Comments No Sex and Gender Information Value Date Recorded Sex Assigned at Female 02/02/2021 6:41 PM EDT Legal Sex Female 5:39 PM EST Gender Identity Female 02/02/2021 6:41 PM EDT Sexual Orientation Choose not to disclose 2023 7:33 PM EDT documented as of this encounter Plan of Treatment Not on file documented as of this encounter Visit Diagnoses Not on filedocumented in this encounter Additional Health Concerns Assessment Noted Time PHQ-2 Depression Total Score: 0 08/17/20 19 8:33 AM EST documented as of this encounter Care Teams Transportation Planning Engineer Relationship Specialty Start Date End Date Nathalie Cotton MD [email or web address] PCP - General Family Medicine 03/30/2103/24 Adarsh Palacio MD [address] [place] [address] [place] [address] PCP - General Medical Oncology 03/25/24 documented as of this encounter Additional Source Comments The information contained in this document represents components of the legal health record. It is not the complete legal health record.[facility]
--- OUTSIDE RECORDS SUMMARY | 2025-08-14 09:08 | XMS_ITS | Encounter Summary ---
Author Organization [facility] Address [address] [address] Phone Care Team Providers Care Millinery Salesperson Name Role Phone Arleth Marquez RNsawing and assembly supervisor Provider [phone] Nathalie Cotton MD Primary Care Provider [email or web address] Nathalie Cotton MD Unavailable [email or web address] Adarsh Palacio MD Primary Care Provider [phone] Encounter Details Date Type Department Care Team (Latest Contact Info) Description 06/18/2020 Transcribe Orders Virtual Department [address] [place] [address] Red Melgar MD [address] [place] [id number] [email or web address] Encounter for pre-operative laboratory testing (Primary Dx) Social History Tobacco Use Types Packs/Day Years Used Date Smoking Tobacco: Never Smokeless Tobacco: Never Alcohol Use Standard Drinks/Week Comments Not Currently 0 (1 standard drink = 0.6 oz pur e alcohol) Comments No Sex and Gender Information Value Date Recorded Sex Assigned at Female 02/02/2021 6:41 PM EDT Legal Sex Female 5:39 PM EST Gender Identity Female 02/02/2021 6:41 PM EDT Sexual Orientation Choose not to disclose 2023 7:33 PM EDT documented as of this encounter Plan of Treatment Not on file documented as of this encounter Results * COVID-19 PCR Order (06/22/2020 4:40 PM EDT) Specimen Source NASOPHARYNGEAL SWAB (BEHAVIORAL HEALTH ASSISTANT) [facility] COVID-19 Comment [id number] [facility] COVID Testing Status [place] [facility] [place] [facility] Other 06/22/2020 4:40 PM EDT 06/22/2020 4:56 PM EDT us Red Melgar MD LAB GENERAL ORDERABLES Final Result [facility] [address] [place] [address] documented in this encounter Visit Diagnoses Diagnosis Encounter for pre-operative laboratory testing- Primary documented in this encounter Additional Health Concerns Assessment Noted Time PHQ-2 Depression Total Score: 0 08/17/20 8:33 AM EST documented as of this encounter Care Teams Millinery Salesperson Relationship Specialty Start Date End Date Arleth Marquez RN [address] [place] [address] [email or web address] PCP - General Internal Medicine 08/17/19 03/29/21 Nathalie Cotton MD PCP - General Family Medicine 03/30/21 03/24/24 Adarsh Palacio MD [address] [place] [address] [address] [place] [address] PCP - General Medical Oncology 03/25/24 Nathalie Cotton MD [email or web address] Insurance Assigned Provider 09/18/21 02/06/22 documented as of this encounter Additional Source Comments The information contained in this document represents components of the legal health record. It is not the complete legal health record.[facility]
--- OUTSIDE RECORDS SUMMARY | 2025-08-14 09:08 | XMS_ITS | Encounter Summary ---
Author Organization [facility] Address [address] [address] Phone Care Team Providers Care Biomedical Electronics Technician Name Role Phone Arleth Marquez RNruby on rails web developer Provider [phone] Nathalie Cotton MD Primary Care Provider [email or web address] Nathalie Cotton MD Unavailable [email or web address] Adarsh Palacio MD Primary Care Provider [phone] Encounter Details Date Type Department Care Team (Late st Contact Info) Description 04/29/2020 Ancillary Orders [facility],Outside Imaging [address] [place], [place] [id number] System, Provider Not In, [place] [address] Social History Tobacco Use Types Packs/Day Years [...] documented as of this encounter Results * Mammogram Outside (No [...] documented as of this encounter Care Teams Biomedical Electronics Technician Relationship Specialty Start Date End Date Arleth Marquez RN [address] [place] [phone] [email or web address] PCP - General Internal Medicine 08/17/19 03/29/21 Nathalie Cotton MD PCP - General Family Medicine 03/30/21 03/24/24 Adarsh Palacio MD [address] [place] [address] [place] [address] PCP - General Medical Oncology 03/25/24 Nathalie Cotton MD Insurance Assigned Provider 09/18/21 02/06/22 documented as of this encounter Additional Source Comments The information contained in this document represents components of the legal health record. It is not the complete legal health record.[facility]
--- OUTSIDE RECORDS SUMMARY | 2025-08-14 09:09 | XMS_ITS | Patient Health Record ---
Author Organization Adarsh Palacoi III, MD Address [address] [place] [address] Care Team Providers Care Race Relations Professor Name Role Phone Dr. Adarsh Palacio III Primary Care Provider Allergies Allergen (clinical drug ingredient) Drug/Non Drug Allergy documented on EMR Reaction Allergy Type Onset Date Status No Known Drug Allergy Unknown Drug Allergy Active Results Component Value Reference Range Notes MM tomosynthesis screening B I Reviewed date:02/03/2025 06:48:21 AM Interpretation: Performing Lab: Notes/Report: [address] [place] [address] Mammography Report Signed Patient: Corina Sr MR#: [id number] : 1970 Acct:[id number] Age/Sex: 54 / F ADM Date: 01/23/25 Loc: HO.MAMMO Attending Dr: Adarsh Palacio MD Ordering Physician: Adarsh Palacio MD Results: 1Negativ e Date of Service: 01/23/25 Follow Up: 1 Year From [facility] Mammogram Procedure(s): MM tomosynthesis screening BI Accession Number(s): [id number] cc: Adarsh Palacio MD EXAMINATION: MM SCREENING DIGITAL BREAST TOMOSYNTHESIS, BILATERAL CLINICAL INFORMATION: Screening. Asymptomatic. COMPARISON: Mammography: Comparison is made with available priors TECHNIQUE: Digital breast mammography with tomosynthesis is performed in both the craniocaudal and mediolateral oblique views along with computer-aided detection (CAD). FINDINGS: The breasts are extremely dense, which lowers the sensitivity of mammography (ACR BI-RADS breast composition Category d). There are no significant masses, abnormal calcifications, or other abnormalities. MM/MM tomosynthesis screening BI IMPRESSION: No mammographic evidence of malignancy. ASSESSMENT: BI-RADS BI-RADS 1 - Negative RECOMMENDATION: Routine annual mammography screening. 1 year F/U This examination should not preclude the clinical evaluation of a suspicious palpable abnormality. This patient's information was entered into a reminder system with a target due date for their next mammogram. Electronically signed by: Ruby Peterson DO 01/29/2025 02:37 PM EDT RP Dictated By: Ruby Peterson DO Signed By: <Electronically signed by Ruby Peterson DO in OV> 01/29/25 1437 DD/ 1000 TD/TT: 01/23/25 1021 E Mail System Administrator: Will [facility] [address] [place] [address] Mammography Report Signed Patient: Cuauhtemoc Sr MR#: [id number] : 1970 Acct:[id number] Age/Sex: 54 / F ADM Date: 01/23/25 Loc: HO.MAMMO Attending Dr: Adarsh Palacio MD Ordering Physician: Adarsh Palacio MD Results: 1Negativ e Date of Service: Follow Up: 1 Year From [facility] Mammogram Procedure(s): MM petrona osynthesis screening BI Accession Number(s): [id number] cc: Adarsh Palacio MD EXAMINATION: MM SCREENING DIGITAL BREAST TOMOSYNTHESIS, BILATERAL CLINICAL INFORMATION: Screening. Asymptomatic. COMPARISON: Mammography: Compari son is made with available priors TECHNIQUE: Digital breast mammo graphy with tomosynthesis is performed in both the craniocaudal and med iolateral oblique views along with computer-aided detection (CAD). FINDINGS: The breasts are extr hilary dense, which lowers the sensitivity of mammography (ACR BI- RADS breast composition Category d). There are no signifi cant masses, abnormal calcifications, or other abnormalities. M M/MM tomosynthesis screening BI IMPRESSION: No mammographic evid ence of malignancy. ASSESSMENT: BI-RADS BI-RADS 1 - Negative RECOMMENDATION: Routine annual mammo graphy screening. 1 year F/U This examination james uld not preclude the clinical evaluation of a suspicious palpable abnormality. This patient's infor naeem was entered into a reminder system with a target due date for their next mammogram. Electronically pretty d by: Ruby Peterson DO 01/29/2025 02:37 PM EDT RP Dictated By: Ruby Peterson DO Signed By: <Electron ically signed by Ruby Peterson DO in OV> 01/29/25 1437 DD/ 1000 TD/TT: 01/23/25 1021 E Mail System Administrator: Reason For Referral Reason Consult and Treat Diagnosis 1 Right elbow pain (M2 5.521) Diagnosis 2 Right wrist pain (M2 5.531) Referral Organization Adarsh Palacio III, MD Referring Provider First Name Adarsh Referring Provider Last Name Hakeem Referring Provider Speciality Internal M edicine Referred Provider [facility], [facility] Referred Provider Specialty [facility] General Notes Marga Boswell 11/26/2024 10:39:39 AM > Referral faxed with progress note, patient was called and left a message notifying her that the referral was faxed and to contact their office directly to schedule her appointment within a week, aMrga Boswell 12/06/2024 09:19:55 AM > Patient is [...] Active hydrOXYzine HCl 10 MG PLEASE SEE COSMETIC SURGEON D FOR DETAILED DIRECTIONS Oral Active Phenazopyridine HCl [...] Status W/U Status Risk Notes Problem Depression (894260553) Depression (F32.9) Active confirmed She has stopped the Wellbutrin and reduce the Prozac. I think this is acceptable. Her depression is clearly improved and the stress level is decreased. Problem 304094395 Underweight (R63.6) Active confirmed Her body mass index is 19. Her depression is improving. She was given an appointment to come as he is to measure her weight. Problem 6014643 Arthritis (M19.90) Active confirmed There has been no change in her arthritic symptoms which are mild. Problem Pain in wrist (31730123) Pain in left wrist (M25.532) Active confirmed The pain is localized over the end of the radius. The orthopedist will see her. Problem 119606048 Environmental allergies (Z91.09) Active confirmed She is having no allergies at this time. Problem Migraine (41109481) Migraine (G43.909) Active confirmed She says she is having fewer headaches now. She has ended a stressful relationship. Her depression is better. Problem Chronic interstitial cystitis (767535441) Interstitial cystitis (N30.10) Active confirmed She is experienciing increasing pain and dysuria from a flareup of her symptoms. We are referring her to urology. Problem 58837529 Seizure (R56.9) Active confirmed No seizures have occurred. No change in her medications was necessary. Observation for this complaint will continue. Problem 2936813209 Left medial knee pain (M25.562) Active confirmed She reports occasional twinges in the left knee but is ambulating without difficulty. Problem 93310481 Bilateral carpal tunnel syndrome (G56.03) Active confirmed When she was living in [place], [place]. She had bilateral carpal tunnel surgery and is now stable. The pain has been relieved. Problem 786429871301340 Fibroids (D21.9) Active confirmed When she was residing in [place], [place]. She had surgery for fibroids. The details are unavailable. 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) Active [...] Date Provider Diagnosis Adarsh Palacio III, MD [address] [place] [address] [place] [address] 11/20/2024 Adarsh Palacio Migraine G43.909 ; Depression F32.9 ; Interstitial cystitis N30.10 ; Seizure R56.9 and Left medial knee pain M25.562 Adarsh Palacio III, MD [address] [place] [address] [place] [address] 08/12/2025 Adarsh Palacio Depression F32.9 ; Underweight R63.6 and Tachycardia R00.0 Assessments Encounter Date Diagnosis (ICD Code) Assessment Notes Treatment Notes Treatment Clinical Notes 11/20/2024 Depression (ICD-10 - F32.9) She has stopped the Wellbutrin and reduce the Prozac. I think this is acceptable. Her depression is clearly improved and the stress level is decreased. 11/20/2024 Migraine (ICD-10 - G43.909) She says she is having fewer headaches now. She has ended a stressful relationship. Her depression is better. 08/12/2025 Depression (ICD-10 - F32.9) 11/20/2024 Interstitial cystitis (ICD-10 - N30.10) She is experienciing increasing pain and dysuria from a flareup of her symptoms. We are referring her to urology. 08/12/2025 Underweight (ICD-10 - R63.6) 11/20/2024 Seizure (ICD-10 - R56.9) No seizures have occurred. No change in her medications was necessary. Observation for this complaint will continue. 08/12/2025 Tachycardia (ICD-10 - R00.0) 11/20/2024 Left medial knee pain (ICD-10 - M25.562) She reports occasional twinges in the left knee but is ambulating without difficulty. Plan Of Treatment Pending Test Test Name Order Date PROFILE, FASTING (COMPREHENSIVE METABOLI C) 03/23/2024 PROFILE, FASTING (COMPREHENSIVE METABOLI C) 06/02/2022 PROFILE, FASTING (COMPREHENSIVE METABOLI C) 03/04/2023 PROFILE, FASTING (COMPREHENSIVE METABOLI C) 11/14/2023 PROFILE, FASTING (COMPREHENSIVE METABOLI C) 08/12/2025 PROFILE, FASTING (COMPREHENSIVE METABOLI C) 12/01/2022 PROFILE, FASTING (COMPREHENSIVE METABOLI C) 07/18/2023 LIPID PANEL 06/02/2022 LIPID PANEL 11/14/2023 LIPID PANEL 12/01/2022 CBC w DIFF 07/18/2023 CBC w DIFF 12/01/2022 CBC w DIFF 03/04/2023 CBC w DIFF 06/02/2022 CBC w DIFF 08/12/2025 CBC w DIFF 11/14/2023 CBC WITH AUTO DIFF 03/23/2024 Lipid Panel 07/18/2023 Lipid Panel 03/23/2024 Lipid Panel 03/04/2023 Lipid Panel 08/12/2025 Next Appt Details Provider Name:Adarsh Ayala Hakeem , 08/16/2025 09:30:00 AM, [address] [place] [address] AY[address] KWON, [place], [address], Insurance Providers Payer Name Payer Address Payer Phone Subscriber Number Group Number Insured Name Patient Relationship to Insured Coverage Start Date Coverage End Date [facility] [address] [place] [address] [phone] [id number] Corina Sr Self - patient is the insured [place] [address] [place] [id number] [phone] [id number] Corina Sr Self - patient is the [...] tunnel surgery Dental extraction 2023 Fibroid surgery, [place] First colonoscopy age 49. [facility] eye surgery Ulnar nerve release at [place], [place] Bilateral carpal tunnel surgery Hospitalization History Reason Date(Month/Year) No history Syncope 04/2022
--- OUTSIDE RECORDS SUMMARY | 2025-08-14 09:09 | XMS_ITS | Data Portability ---
Author Organization JAXSON Leobardo Barroso [facility] Address [address] [place] [address] Care Team Providers Care Monitoring Tech Name Role Phone CHELSEY GUILLORY Primary Care Provider [phone] Assessment Encounter Date Assessment Date Assessment LastModified by Organization Details LastModified Time 12/07/2024 12/07/2024 Assessment: Possible recurrent 1.Possible recurrent carpal tunnel syndrome right>left 2. Right elbow lateral epicondylitis after prior lateral condyle debridement many years ago Plan: 1. Bilateral upper extremity EMG is ordered to assess for recurrent carpal tunnel syndrome 2. Conservative treatment for lateral epicondylitis is initiated today with a forearm strap and PT prescription. 3. Follow-up after the nerve study has been performed so we can review the results of that study and also assess her response to conservative treatment for right elbow lateral epicondylar symptoms. [email or web address] Not available 12/07/2024 12:23:25 04/19/2025 04/19/2025 Assessment: 1.mild bilat carpal tunnel syndrome after prior CTR in 2020 2. Right DeQuervain's tenosynovitis-init ial diagnosis Plan: Findings on her EMG have been reviewed. Reassurance provided that the moderate to severe carpal tunnel syndrome that was present prior to the initial surgery he is now found to be only mild. We have discussed treatment options for her carpal tunnel symptoms. She can return to nighttime splinting. I offered disown injection but this is not performed to the carpal tunnel today because instead we proceeded with right wrist first dorsal compartment injection with Celestone for treatment of newly diagnosed de Quervain's tenosynovitis. We have discussed the pathophysiology of DeQuervains and she will continue with the use of the thumb spica splint until the injection takes effect. Follow-up as scheduled with me in about 8 weeks to assess her response to this injection and perhaps proceed with carpal tunnel injections if symptoms warrant. [email or web address] Not available 04/19/2025 14:13:04 Plan of Treatment Reminders Order Date Submit Date Provider Last Modified By Organization Details Last Modified Time Details Appointments RECHEC K 15 2024 01:30P M Ciera sierra MD Not available Not available Not available Lab None record ed. Referral physic al therap ist referr al - Diagno sis: RIGHT Latera l epicon dyliti s Treatm ent: Eccgerard aldana thenin g exerci ses of wrist extens ors and develo pment of home exerci se progra m. 1 time visit 2024 025 rmessenger Not available 12/25/2024 10:39:33 Procedures None record ed. Surgeries None record ed. Imaging XR, hand, 3 or more view - room 115 3V R TMJ 2024 025 [facility], [address], [place], [address], 04/26/2025 16:01:11 electr omyogr am + nerve conduc tion study - EMG bilate ral upper extrem ities- eval for ? recurr ing carpal tunnel syndro me 2024 025 [facility] [address], [place], [address], 02/27/2025 01:15:49 Medication Orders None record ed. Patient TargetsNo targets recorded. Patient InstructionsNo instructions recorded. Reason for Referral Physical Therapist Referral for Right lateral elbow tendinopathy Diagnosis: RIGHT Lateral epicondylitisTreatment: Eccentric strengthening exercises of wrist extensors and development of home exercise program. 1 time visit Referring Physician: Ciera Coates, Orthopedic Surgery, Encounter Date: 12/07/2024 Results Created Date Observation Date Name Description Value Unit Range Abnormal Flag Note LastModifiedBy Organization Detail LastModifiedTime 02/27/2002/18/2025 elect romyo gram + nerve condu ction study No observ ation record ed. [facility] Scheduling Dept [address] [facility], [place], [address], 02/27/2025 09:09:27 04/19/20 25 04/19/2025 XR, hand, 3 or more view [email or web address] ?Encry pted=s hAaTro YD8dLq bEUv6g %2BXZw aYqtaq 0bqfl% 2Fg9IQ a4ajBk vP9nXo QUaueC m3YtLR FvZlgJ JJ8mAn HZtai3 1b8314 AC0Kla XSEWaG nKiQtr MwF INTERFACE [facility] [address], [place], [address], 04/19/2025 13:41:29 04/19/20 25 04/19/2025 XR, hand, 3 or more view [email or web address] ?Encry pted=s hAaTro YD8dLq bEUv6g %2BXZw aYqtaq 0bqfl% 2Fg9IQ a4ajBk vP9nXo QUaueC m3YtLR FvZlgJ JJ8mAn HZtai3 6o9910 AC0Kla XSEWaG nKiQtr MwF INTERFACE [facility] [address], [place], [address], 04/19/2025 13:41:31 Result Notes Documentation Provider Name and Address Organization Details Recorded Time Xr, Hand, 3 Or More View : [email or web address]? Encrypted=pbPeUrsRX4hTdhS Uv6g%2TLVaxAmgzx4ldju%2Fg 1WNv7juXkqK5zMdNSlglQy7Bd QKZlDytXJG1eVyQTwmx21i063 4CZ6SwhNQWUvByOxIloUoW Not Available [facility] 04/19/2025 13:41: 30 Xr, Hand, 3 Or More View : [email or web address]? Encrypted=ybXwDxnMZ9xNezI Uv6g%8AGSzwKsowx2anhz%2Fg 4KUg0cjFooZ7jJpHDfijQz8Zv KFXlCvnLMV0uDqZDifl45y223 6GM6JhaKOIOmNaAsBqsBkL Not Available [facility] 04/19/2025 13:41: 31 Procedures Surgical History Date Name Laterality Status Provider Name and Address Organization Details Recorded Time 04/19/20 25 JZCelestone Wrist Tendon Inj completed Ciera Coates MD [address] [place] [address] [address], [place], [address], [facility] 04/19/2025 13:53:54 Imaging Results None recorded. Procedure Notes None recorded. Medical Equipment None Reported. Allergies No known drug allergies Medications Name Sig Start Date Stop Date Status Note LastModified by Organization Details LastModified Time amoxicillin 500 mg capsule TAKE 1 CAPSULE (500 MG TOTAL) BY MOUTH DAILY FOR 10 DAYS. active Not Available Not Available No t Available clindamycin HCl 300 mg capsule TAKE 1 CAPSULE BY MOUTH EVERY 6 HOURS active Not Available Not Available No t Available phenazopyrid ine 200 mg tablet TAKE 1 TABLET BY MOUTH THREE TIMES A DAY AFTER MEALS FOR 10 DAYS active Not Available Not Available Not Available clonazepam 0.5 mg tablet TAKE 1 TABLET BY MOUTH TWICE A DAY active Not Available Not Available No t Available rizatriptan 10 mg tablet TAKE 1 TABLET BY MOUTH EVERY DAY FOR 30 DAYS active Not Available Not Available No t Available acetaminophe n 500 mg tablet TAKE 1 TABLET BY MOUTH EVERY 4 TO 6 HOURS NEEDED active Not Available Not Available No t Available amoxicillin 500 mg tablet TAKE 1 TABLET BY MOUTH TWICE DAILY active Not Available Not Available No t Available oxycodone-ac etaminophen 5 mg-325 mg tablet TAKE 1-2 TABLETS BY MOUTH EVERY 6 (SIX) HOURS NEEDED FOR PAIN. PARTIAL FILL OK active Not Available Not Available No t Available clindamycin 1 % topical gel APPLY TO FACE IN THE MORNING active Not Available Not Available No t Available ibuprofen 400 mg tablet TAKE 1 TABLET BY MOUTH TWICE DAILY active Not Available Not Available No t Available fluoxetine 10 mg capsule TAKE 1 CAPSULE BY MOUTH EVERY DAY active Not Available Not Available No t Available zolpidem 5 mg tablet TAKE 1 TABLET BY MOUTH EVERY DAY AT BEDTIME NEEDED active Not Available Not Available No t Available ibuprofen 600 mg tablet TAKE 1 TABLET BY MOUTH EVERY 6 TO 8 HOURS NEEDED active Not Available Not Available No t Available estradiol 0.01% (0.1 mg/gram) vaginal cream INSERT 0.5 GM VAGINALLY DAILY AT BEDTIME EVERY NIGHT FOR 2 WEEKS & THEN 2-3 TIMES A WEEK AFTER THAT active Not Available Not Available No t Available hydroxyzine HCl 10 mg tablet TAKE 1 TABLET BY MOUTH AT BEDTIME MAY INCREASE TO 4 TABS AT BEDTIME active Not Available Not Available No t Available fluoxetine 20 mg capsule TAKE 1 CAPSULE BY MOUTH EVERY DAY active Not Available Not Available No t Available oxycodone 5 mg tablet TAKE 1 TABLET EVERY 6 HOURS NEEDED FOR BREAKTHROUG H PAIN. active Not Available Not Available No t Available bupropion HCl XL 150 mg 24 hr tablet, extended release TAKE 1 TABLET BY MOUTH EVERY DAY IN THE MORNING active Not Available Not Available No t Available trospium 20 mg tablet TAKE 1 TABLET BY MOUTH TWICE A DAY active Not Available Not Available No t Available chlorhexidin e gluconate 0.12 % mouthwash RINSE MOUTH WITH 15ML (1 CAPFUL) FOR 30 SECONDS IN MORNING AND EVENING AFTER BRUSHING, THEN SPIT active Not Available Not Available No t Available sodium fluoride 1.1 %-potassium nitrate 5 % dental paste APPLY TWICE DAILY AFTER MEALS. LEAVE ON 5 MIN THEN RINSE active Not Available Not Available No t Available Vitals Date Recorded Body height Body mass index (BMI) Body weight Provider Name and Address Organization Details Last Updated DateTime 12/07/2024 167.64 cm 19.2 kg/m2 78514.49 g TAYLOR SEGOVIA [facility] 12/07/2024 11:27:14 Date Recorded Body height Body mass index (BMI) Body weight Provider Name and Address Organization Details Last Updated DateTime 04/19/2025 167.64 cm 20.2 kg/m2 43756.05 g TAYLOR SEGOVIA [facility] 04/19/2025 13:33:00 Social History None recorded. Functional Status None recorded. Mental Status None recorded. Family History Nothing Reported. Medical History No medical history recorded. Gynecological HistoryNo gynecological history recorded. Obstetrics History GPAL:G 0 P 0 0 0 0 Past Encounters Encounter ID Performer Location Encounter Start Date Encounter Closed Date Diagnosis/Indication Diagnosis SNOMED-CT Code Diagnosis ICD10 Code Diagnosis IMO Codes Diagnosis Note [id number] MD TIM Conner [facility] [address] [facility] [address] 12/07/2024 10:52:11 12/25/2024 10:39:33 Bilateral wrist pain 8008902739 9088700 M25.531 M25.532 48812543 Right late ral elbow tendinopathy 8815557415 14144 M77.11 [id number] Carpal rafael katia syndrome of left wrist 5070544637 93447 G56.02 9946404 Carpal rafael katia syndrome of right wrist 4274836525 70747 G56.01 [id number] MD [facility] [address] [place] [address] 04/19/2025 13:27:08 04/26/2025 16:01:11 Bilateral wrist pain 5617255333 6621178 M25.531 M25.532 33424186 Right late ral elbow tendinopathy 0027744506 23304 M77.11 3988324 Carpal rafael katia syndrome of left wrist 9778230659 18038 G56.02 [id number] Carpal rafael katia syndrome of right wrist 0017990078 63563 G56.01 5453317 Pain of right hand 03240 24566 70713 M79.224 9993413 Radial sty loid tenosynovitis 25794664 M65.4 159921 Health Concerns Section Related Observation LastModified by Organization Detai ls LastModified Time None Recorded Concern Status LastModified by Organization Details LastModified Time None Recorded Advance Directives Directive None Recorded Payers Insurance Date Sequence Insurance Name Policy Number Policy Aguila Covered Member ID Aguila Member ID Guarantor Name 06/09/2025 1 [facility] [employer] - TOGETHER (MEDICAID HMO) [id number] Corina Sr [id number] Corina Sr Notes Date Note Type Note Provider Name and Address Organization Details Recorded Time 12/07/2024 text/html ROS as noted in the HPI 54 yo female known to me having undergone bilat staged CTR in 2020, here today for eval of R wrist pain and hand numbness. She reports numbness with use, while holding things for a period of time. No sig pm paresthesias. She feels that her symptoms in her hands are similar to those that she had prior to her carpal tunnel release surgery. She had great relief of her symptoms after the carpal tunnel release surgery 4 years ago.She also reports pain over the right elbow where she had a prior lateral epicondylar debridement performed many years ago. Ciera Coates MD [address] [facility] [address], [place], [address], [facility] 12/07/2024 12:25:45 04/19/2025 text/html ROS as noted in the HPI 54 yo female known to me having undergone bilat staged CTR in 2020, here today for eval of R wrist pain and hand numbness. She reports numbness with use, while holding things for a period of time. No sig pm paresthesias. She feels that her symptoms in her hands are similar to those that she had prior to her carpal tunnel release surgery. She had great relief of her symptoms after the carpal tunnel release surgery 4 years ago. Here today to review the results of her recent EMG. She also notes a new problem of right wrist dorsal radial pain. No recent injury or trauma. She has been using a thumb spica splint and arnica. Ciera Coates MD [address], [place], [address], [facility] 04/19/2025 16:11:20 OBGyn Episode No OBEpisode recorded.
--- OUTSIDE RECORDS SUMMARY | 2025-08-14 09:09 | XMS_ITS | Encounter Summary ---
Author Organization [facility] Address [address] [address] Phone Care Team Providers Care Street Light Repairer Name Role Phone Arleth Marquez RNtool checker Provider [phone] Nathalie Cotton MD Primary Care Provider [email or web address] Nathalie Cotton MD Unavailable [email or web address] Adarsh Palacio MD Primary Care Provider [phone] Encounter Details Date Type Department Care Team (Latest Contact Info) Description 08/17/2019 Transcribe Orders [address] [place] [address] Arleth Marquez RN [address] [place] [address] [email or web address] Encounter for blood typing (Primary Dx) Social History Tobacco Use Types Packs/Day Years Used Date Smoking Tobacco: Never Smokeless Tobacco: Never Alcohol Use Standard Drinks/Week Comments Not Currently 0 (1 standard drink = 0.6 oz pur e alcohol) Comments Unknown Sex and Gender Information Value Date Recorded Sex Assigned at Female 02/02/2021 6:41 PM EDT Legal Sex Female 5:39 PM EST Gender Identity Female 02/02/2021 6:41 PM EDT Sexual Orientation Choose not to disclose 2023 7:33 PM EDT documented as of this encounter Plan of Treatment Not on file documented as of this encounter Results * ABO and Rh (08/17/2019 9:49 AM EST) ABO/Rh AB Positive [facility] Resulting Agency [facility] Blood 08/17/2019 9:49 AM EST 08/17/2019 9:55 AM EST us Arleth Marquez RN LAB BLOOD BANK TEST ORDERABLES F inal Result [facility] [address] [place] [address] documented in this encounter Visit Diagnoses Diagnosis Encounter for blood typing- Primary documented in this encounter Additional Health Concerns Assessment Noted Time PHQ-2 Depression Total Score: 0 08/17/20 19 8:33 AM EST documented as of this encounter Care Teams Street Light Repairer Relationship Specialty Start Date End Date Arleth Marquez RN [address] [place] [address] [email or web address] PCP - General Internal Medicine 08/17/19 03/29/21 Nathalie Cotton MD [email or web address] PCP - General Family Medicine 03/30/21 03/24/24 Adarsh Palacio MD [address] [place] [address] [place] [address] PCP - General Medical Oncology 03/25/24 Nathalie Cotton MD [email or web address] Insurance Assigned Provider 09/18/21 02/06/22 documented as of this encounter Additional Source Comments The information contained in this document represents components of the legal health record. It is not the complete legal health record.[facility]
--- OUTSIDE RECORDS SUMMARY | 2025-08-14 09:10 | XMS_ITS | Encounter Summary ---
Author Organization [facility] Address [address] [address] Phone Care Team Providers Care Pig Machine Supervisor Name Role Phone Arleth Marquez RNroadway engineer Provider [phone] Nathalie Cotton MD Primary Care Provider [email or web address] Nathalie Cotton MD Unavailable [email or web address] Adarsh Palacio MD Primary Care Provider [phone] Encounter Details Date Type Department Care Team (Late st Contact Info) Description 04/29/2020 Ancillary Orders [facility],Outside Imaging [address], [place] [id number] System, Provider Not In, [place] [address] Social History Tobacco Use Types Packs/Day Years [...] encounter Results * Mammogram Outside (No Interpretation) (12/22/2016 12:00 AM EDT) Narrative SYSTEMGENERATED, DOCUMENTATION - 04/29/2020 9:52 AM EDT This study is for PACS storage only and not for interpretation. us Provider Not In System PhD IMG OUTSIDE IMAGING W /OUT INTERPRETATION Final Result documented in this encounter Visit Diagnoses Not on filedocumented in this encounter Additional Health Concerns Assessment Noted Time PHQ-2 Depression Total Score: 0 08/17/20 19 8:33 AM EST documented as of this encounter Care Teams Pig Machine Supervisor Relationship Specialty Start Date End Date Arleth Marquez RN [address] [place] [id number] [email or web address] PCP - General Internal Medicine 08/17/19 03/29/21 Nathalie Cotton MD [email or web address] PCP - General Family Medicine 03/30/21 03/24/24 Adarsh Palacio MD [address] [place] [address] [place] [address] PCP - General Medical Oncology 03/25/24 Nathalie Cotton MD [email or web address] Insurance Assigned Provider 09/18/21 02/06/22 documented as of this encounter Additional Source Comments The information contained in this document represents components of the legal health record. It is not the complete legal health record.[facility]
[2025-08-14 09:13] LABS: MANUAL DIFF FLAG NO
[2025-08-14 10:14] LABS: Hematocrit 43.0 % (37.0-47.0); Hemoglobin 14.4 g/dl (12.0-16.0); Imm Gran Abs Auto 0.01 X10*3/uL (0.00-0.03); Imm Gran Pct Auto 0.2 % (0.0-0.4); Lymphocytes Absolute Auto 1.7 X10*3/uL (1.2-4.9); Mean Corpuscular HGB Conc 33.5 g/dl (31.0-35.0); Mean Corpuscular Hemoglobin 31.0 pg (27.0-33.0); Mean Corpuscular Volume 92.5 fL (80.0-98.0); NRBC Abs Auto 0.000 X10*3/uL (0.0-0.012); NRBC Pct Auto 0.0 /100WBC (0.0-0.2); Platelet Count 255 X10*3/uL (160-400); Red Blood Count 4.65 X10*6/uL (4.20-5.50); White Blood Count 5.9 X10*3/uL (4.8-10.8)
== END 2025-08-14 08:43 | disposition home or self-care (01) ==
LOC: HO.LAB 08:42
PROVIDERS: PCP Internal Medicine Medical Oncology; Visit Provider Internal Medicine Medical Oncology
DX: F32.9 Major depressive disorder, single episode, unspecified (principal); R63.6 Underweight; R00.0 Tachycardia, unspecified
CPT/HCPCS: 36415; 80053; 80061; 85025

== ENCOUNTER 2025-08-16 10:31 | Outpatient (REF) | payer OTHER, SELFPAY ==
[2025-08-16 12:28] LABS: Alanine Aminotransferase 23 U/L (0-31); Albumin Level 4.7 g/dL (3.5-5.0); Alkaline Phosphatase 72 U/L (39-117); Anion Gap 13 (12-20); Aspartate Amino Transferase 29 U/L (5-31); Blood Urea Nitrogen 18 mg/dL (9-16); Calcium 9.7 mg/dL (8.4-10.2); Carbon Dioxide 28 mmol/L (22-29); Chloride 106 mmol/L (96-108); Cholesterol 261 mg/dL (<200); Estimated Glomerular Filt Rate > 60; HDL Cholesterol 81 mg/dL (>40); Potassium 4.2 mmol/L (3.3-5.1); Sodium 143 mmol/L (135-145); Total Protein 7.3 g/dL (6.5-8.0); Triglycerides 107 mg/dL (<150)
== END 2025-08-16 10:32 | disposition home or self-care (01) ==
LOC: HO.LAB 10:31
PROVIDERS: PCP Internal Medicine Medical Oncology; Visit Provider Internal Medicine Medical Oncology
DX: R63.6 Underweight (principal); G43.909 Migraine, unspecified, not intractable, without status migrainosus; F32.9 Major depressive disorder, single episode, unspecified
CPT/HCPCS: 36415; 80053; 80061